=== PATIENT | male | born 1955 | race Caucasian/White ===

== ENCOUNTER → 2023-07-20 15:49 | Outpatient (REF) | payer OTHER, SELFPAY | LOC: HWRAD 15:49 | PROVIDERS: ATTENDING PHYSICIAN Family Medicine | DX: R26.89 Other abnormalities of gait and mobility (principal) | CPT/HCPCS: 70450 ==

== ENCOUNTER → 2023-07-21 07:39 | Outpatient (REF) | payer OTHER, SELFPAY | LOC: EMG 07:39 | PROVIDERS: ATTENDING PHYSICIAN Family Medicine | DX: R20.0 Anesthesia of skin (principal) | CPT/HCPCS: 95886; 95909 ==

== ENCOUNTER 2023-08-02 20:33 | Observation (INO) | payer OTHER, SELFPAY ==
[2023-08-02] VITALS (8 sets, daily range): BP systolic 98–171; BP diastolic 74–92; BMI 26.4
[2023-08-02 16:59] LABS: % Basophils 0.5 % (0-2); % Eosinophils 3.7 % (0-6); % Immature Granulocytes 0.3 % (0-0.5); % Lymphocytes 21.2 % (20.5-51.1); % Monocytes 8.3 % (1.7-9.3); Absolute Eosinophils 0.3 10^3/uL (0-0.7); Absolute Lymphocytes 1.7 10^3/uL (1.2-3.4); Absolute Monocytes 0.7 10^3/uL (0.1-0.6); Absolute Neutrophils 5.2 10^3/uL (1.4-6.5); Hematocrit 44.1 % (39.0-52.0); Hemoglobin 15.3 g/dL (13.0-18.0); Mean Corp Hgb Conc. 34.7 g/dL (33.0-37.0); Mean Corpuscular Hgb 30.3 pg (27.0-31.0); Mean Corpuscular Volume 87.3 fL (80.0-94.0); Mean Platelet Volume 11.4 fL (7.4-10.4); Nucleated Red Blood Cells % 0 % (-); Platelet Count 183 10^3/uL (130-400); Red Blood Cell Count 5.05 10^6/uL (4.70-6.10); White Blood Cell Count 7.9 10^3/uL (4.8-10.8)
[2023-08-02 17:17] LABS: ALT (SGPT) 49 U/L (0-50); AST (SGOT) 28 U/L (17-59); Albumin 4.5 g/dl (3.5-5.0); Alkaline Phosphatase 87 U/L (38-126); Blood Urea Nitrogen 28 mg/dl (9-20); Calcium 9.6 mg/dl (8.4-10.2); Carbon Dioxide 27 mmol/L (22-30); Chloride 105 mmol/L (98-107); Glucose 132 mg/dl (70-99); Potassium 3.8 mmol/L (3.5-5.1); Sodium 137 mmol/L (135-145); Total Bilirubin 0.4 mg/dl (0.2-1.3); Total Protein 7.1 g/dl (6.3-8.2); eGFR > 60.00
[2023-08-02 17:24] LABS: Troponin I < 0.012 ng/ml
--- NOTE | 2023-08-02 19:13 | ED.GENMED ---
History of Present Illness
General
Chief Complaint: Chest Pain
Source: patient
Exam Limitations: none
Time Seen by Provider: 08/02/23 18:01
Nursing documentation reviewed up to this point in time: agreed with
Travel History
Have you had any contact with someone who has COVID-19?: No
Do you have any symptoms of coronavirus? Fever > 100 degrees, chills, cough, shortness of breath, sore throat, loss of taste or smell, muscle aches, or headache?: No
History of Present Illness
History of Present Illness:
67-year-old male with past medical history of heart disease hypertension hyperlipidemia has had multiple stents and a failed stent last year follows with Dr. Terry presenting to the emergency department today with concerns of worsening chest pain
over the past few days described as midsternal with associated shortness of breath made worse with exertion initially improving with nitro but not improving earlier today.
Past History
Past History
ED Past Medical History: Asthma, CAD (Angina), HTN, Hypercholesterolemia, NIDDM (Just diagnosed but no medication as of Nov 2021) and Psychiatric (Anxiety)
ED Past Surgical History: Cardiac (Stent)
Social History
Tobacco: Non-smoker
Alcohol: None
Drug: None
Personal:
Living: with family
Employment: Employed
Family History
Family History: Hypertension
Review of Systems
Review of Systems
Allergies reviewed?: Yes
All Other Systems: ROS reviewed and negative except as documented in HPI and ROS
Phy Exam
Physical Exam
Physical Exam:
GENERAL: Alert , in no apparent distress
EYE: pupils equal and reactive
NECK: Supple, no significant adenopathy.
ENT: o/p clr, mmm.
CARDIAC: Regular rate and rhythm .
LUNGS: Clear breath sounds bilaterally, no acute respiratory distress, no wheezes/rales/rhonchi
ABDOMEN: Soft, without focal tenderness, no r/g, no cvat
NEUROLOGICAL: Alert and oriented, no focal neuro deficits
SKIN: Warm and dry, skin intact.
MUSCULOSKELETAL: No edema, well perfused.
PSYCH: Normal and appropriate interaction.
Scores
Heart Score for Chest Pain Patients
STEMI patient?: No
History: Moderately Suspicious
ECG: Normal
Age: >/= 65 years
Risk Factors: >/= 3 Risk Factors or History of CAD
Troponin: </= Normal Limit
Heart Score for Chest Pain Patients: 5
Heart Score Risk: 20.3% MACE over next 6 weeks
Course
Orders/Labs/Results
Orders:
Orders
08/02/23 16:40
Electrocardiogram (*1) Urgent
Reason for Study: Chest Pain
EKG- Treatment ONCE
08/02/23 16:54
Complete Blood Count/With Diff Urgent
Comprehensive Metabolic Panel Urgent
Troponin I Urgent
Abnormal Lab Results
08/02/23
16:54
MPV 11.4 H fL
(7.4-10.4)
Absolute Monos (auto) 0.7 H 10^3/uL
(0.1-0.6)
BUN 28 H mg/dl
(9-20)
Glucose 132 H mg/dl
(70-99)
08/02/23 16:54
08/02/23 16:54
Vital Signs
Initial and Last Documented VS:
Initial Vital Signs
Temp Pulse Resp BP Pulse Ox
98.5 F 65 20 146/81 100
08/02/23 16:46 08/02/23 16:46 08/02/23 16:46 08/02/23 16:46 08/02/23 16:46
Last Documented Vital Signs
Temp Pulse Resp BP Pulse Ox
98.5 F 63 18 98/79 98
08/02/23 16:46 08/02/23 19:00 08/02/23 19:00 08/02/23 19:00 08/02/23 19:00
MDM/Problems Addressed
MDM/Problems Addressed:
67-year-old male presenting to the emergency department today with concerns of chest discomfort progressively over the past few days was previously taking nitro with relief but with no significant relief today. Ongoing chest pressure made worse
with exertion associated shortness of breath. Concerning symptoms consistent with potential unstable angina plan to admit. Initial EKG and troponin negative. Stable throughout ER stay normal vital signs.
*Critical Care Note
Total Time (30-74mins, 75-104mins- exclusive of procedures): Not Applicable
ED Attending Note
-
Portions of this chart may have been created with voice recognition software.� Occasional wrong word or��sound alike� substitutions may have occurred due to the inherent limitations of voice recognition software.
Discharge Plan
Departure
Patient Disposition: Admit
Date of Disposition: 08/02/23
Time of Disposition: 19:18
Admit to: Telemetry
Admit to doctor: Joe
Presentation/result/management discussed w/ accepting MD/DO: Hospitalist
Patient with high blood pressure during this ER visit?: No
Condition: Good
Covid-19: Not Applicable
Discharge Problem:
Chest pain
Prescriptions:
No Action
losartan 100 MG tablet
100 mg PO DAILY
nitroglycerin 0.4 MG tablet, sublingual
0.4 mg sublingual [id number] PRN (Reason: chest pain)
hydrochlorothiazide 25 MG tablet
25 mg PO DAILY
ezetimibe 10 mg Tablet
10 mg PO DAILY
clopidogrel 75 mg tablet
75 mg PO DAILY
aspirin 81 MG tablet,delayed release (DR/EC)
81 mg PO DAILY
naproxen sodium [Aleve] 220 mg Tablet
440 mg PO DAILY PRN (Reason: mild pain)
fexofenadine [Cecy] 180 mg Tablet
180 mg PO DAILY
Referrals:
Dion Tran MD [Family Provider] -
Interventions
Interventions:
*Risk Screen - Suicide Last Done: 08/02/23 18:02
*General Assessment Last Done: 08/02/23 18:02
*Neglect/Abuse Screening Last Done: 08/02/23 18:02
*ED COVID-19 Vaccine History Last Done: 08/02/23 18:01
ED- Cardiac Assessment Last Done: 08/02/23 18:01
Discharge Date and Time
Print Language: PORTUGUESE
[2023-08-02] MEDS: LOW STRENGTH ASPIRIN 243 MG PO (19:44)
--- NOTE | 2023-08-02 19:46 | HPS.HSE ---
Family Physician
-
Family Physician: Dion Tran
Chief Complaint
-
Chest Pain/Dyspnea
History of Present Illness
67yo M with PMH CAD s/p Stents (last 04/2022 with in-stent restenosis) on asp/plavix, HTN/HLD, Asthma presents to ER with CP. Pt states he has had on and off chest pain 'discomfort/tightness' for months but worsening more significant over last few
weeks. +exertional component, also endorses SOB and extreme fatigue. Endorses mild radiation to left axilla. Also states pain is similar to 2015 and 2018 when her required stents. He has been taking several nitros in last few days with moderate
relief of symptoms, today took 3. Pt works in [employer] and states he has trouble carrying out simple activities within his job. Denies dizziness/LH, diaphoresis, nausea, abd pain. He underwent cath in 12/2022, at that time noted to have stable CAD,
with 60% LCx lesion, EF 57%. Medical management as was recommended with addition of atenolol which pt reports not being able to tolerate. Denies fever, chills, palps, wheezing, cough, abd pain, n/v/d/c, dysuria, calf or leg pain/swelling.
ER course: Pt presents wtih BP 132/74 -> 98/78, RR 18-21, other V.S.S. BUN/Cr 28/1.0, BG 132, Trop 0.012. EKG nonischemic. S/P ASA 243mg in ER.
Medical History
Past Medical History
Past Medical History: Reports Other
Additional Past Medical History:
ASCVD
CAD s/p Stents
Hypertension
Dyslipidemia
Asthma
Past Surgical History: Reports Other
Additional Past Surgical History:
PTCA with Stent (OM3 stented x 2, most recent 04/2022 for in-stent restenosis)
Social History
Tobacco: Non-smoker
Alcohol: None
Drug: None
Personal:
Living: With Family
Family History
Family History: CAD and Other (Father with CAD s/p OR age 67. Mother with CAD/HTN/Murmur. Daughter with heart murmur. )
Allergies / Home Medications
Allergies reflects when Allergies were last updated in [employer].
Home Medications with original date entered in [employer]
Allergy/Medication List:
Allergies
Allergy/AdvReac Type Severity Reaction Status Date / Time
amlodipine Allergy cough Verified 08/02/23 16:46
atorvastatin Allergy MUSCLE Verified 08/02/23 16:46
ACHES
lisinopril Allergy SLEEPINESS Verified 08/02/23 16:46
metoprolol Allergy sleepiness Verified 08/02/23 16:46
rosuvastatin [From Crestor] Allergy MYALGIAS Verified 08/02/23 16:46
Ouvotaz-JGW-BeX Reductase Allergy MUSCLE Verified 08/02/23 16:46
Inhibitor ACHES
[Navyywy-Riu-Tec Reductase
Inhibitor]
Home Medications
losartan 100 mg tablet 100 mg PO DAILY Blood pressure 08/29/17
hydrochlorothiazide 25 mg tablet 25 mg PO DAILY Blood pressure 05/26/18
nitroglycerin 0.4 mg sublingual tablet 0.4 mg sublingual [id number] PRN chest pain 05/26/18
ezetimibe 10 mg tablet 10 mg PO DAILY High cholesterol 11/17/21
aspirin 81 mg tablet,delayed release 81 mg PO DAILY Blood Clot Prevention/Tx 12/05/22
clopidogrel 75 mg tablet 75 mg PO DAILY Blood Clot Prevention/Tx 12/05/22
naproxen sodium 220 mg tablet (Aleve) 440 mg PO DAILY PRN mild pain 12/21/22
fexofenadine 180 mg tablet 180 mg PO DAILY 08/02/23
Review of Systems
-
A 12 point ROS was completed and negative except as noted: Yes
Physical Exam
Vital Signs
Vital Signs
Temp Pulse Resp BP Pulse Ox
98.5 F 63 18 98/79 98
08/02/23 16:46 08/02/23 19:00 08/02/23 19:00 08/02/23 19:00 08/02/23 19:00
Physical Exam
General: Well Developed, Well Nourished and No Apparent Distress
HEENT: NormoCephalic, Moist mucous membranes and Atraumatic
Respiratory: Clear
Cardiac: S1/S2, Regular Rhythm and Other (No reproducible chest wall tenderness. ); No Murmur or Rub
GI: Soft, Non Tender, Non Distended and Normal Bowel Sounds; No Organomegaly
Rectal: Deferred by Provider
Musculoskeletal: No Clubbing, No Cyanosis and No Edema
Skin: No Rash
Neuro: Awake, Alert, AO x 3 and Nonfocal/grossly intact
Psych: Calm
Laboratory Results
-
08/02/23 16:54
08/02/23 16:54
Laboratory Results
Total Bilirubin 0.4 mg/dl (0.2-1.3) 08/02/23 16:54
AST 28 U/L (17-59) 08/02/23 16:54
ALT 49 U/L (0-50) 08/02/23 16:54
Alkaline Phosphatase 87 U/L (38-126) 08/02/23 16:54
Troponin I < 0.012 ng/ml 08/02/23 16:54
Data Reviewed
-
Diagnostic Radiology: Image Personally Visualized and interpreted
Medical Tests (Nuc Med, Echo, EKG etc): Image Personally Visualized and interpreted
Lab Data: Labs Reviewed by me
Old Records: Reviewed
Impression/Plan
-
Chest Pain / Hx CAD s/p Stents / HLD
- Endorses exertional PEDRAZA/Chest pain/Fatigue worsening over past few weeks relieved by increasing frequency of nitro, today has taken 3
- EKG NSR @ 77bpm, No acute ischemic changes, QTC 436ms. Trop 0.012. Trend per ACS protocol
- obtain Lipids/A1C. Last LDL 76 11/2022
- S/P ASA 243mg in ER. Continue home bASA and plavix/statin/ARB
- Obtain CXR
- Case D/W Cardiology. NPO at midnight.
HTN - BP 132/74-> 98/79 on admission. Likely nitro effect. Continue home losartan. Hold HCTZ in light of suspected cath and slight elevation from baseline renal function.
Asthma - Denies any recent exacerbations. Does not take medications
Diet - Cardiac diet. NPO at midnight
DVT Ppx - Heparin [id number], low threshold to initiate heparin gtt
Code Status - DNR/DNI, Confirmed with pt and at bedside
[2023-08-03] VITALS (8 sets, daily range): BP systolic 144–157; BP diastolic 72–89
--- NOTE | 2023-08-03 00:09 | PTCARENOTE ---
Pt admitted to 2S. VSS. afebrile AAOx3. flat affect , easily agitated and uncooperative at times. C/o mild chest pain but refuses any med at the time. Pt refused a few of his meds and purple bracelet for DNR. Trop and EKG done. NSR in the tele
monitor. Lungs, GI and WNL. Pt ambulates within the room. NPO. Will cont with treatment plan.
--- NOTE | 2023-08-03 00:15 | PTCARENOTE ---
Pt doesn't have an IV access and refuses to have one unless it is necessary. Pt was informed of the need of having one and remains tele.
[2023-08-03 00:48] LABS: Troponin I < 0.012 ng/ml
[2023-08-03 03:25] LABS: % Basophils 0.5 % (0-2); % Eosinophils 3.9 % (0-6); % Immature Granulocytes 0.3 % (0-0.5); % Lymphocytes 20.9 % (20.5-51.1); % Monocytes 7.9 % (1.7-9.3); % Neutrophils 66.5 % (42.2-75.2); Absolute Eosinophils 0.3 10^3/uL (0-0.7); Absolute Lymphocytes 1.8 10^3/uL (1.2-3.4); Absolute Monocytes 0.7 10^3/uL (0.1-0.6); Absolute Neutrophils 5.8 10^3/uL (1.4-6.5); Hematocrit 42.5 % (39.0-52.0); Hemoglobin 14.8 g/dL (13.0-18.0); Mean Corp Hgb Conc. 34.8 g/dL (33.0-37.0); Mean Platelet Volume 11.5 fL (7.4-10.4); Nucleated Red Blood Cells % 0 % (-); Platelet Count 157 10^3/uL (130-400); Red Blood Cell Count 4.94 10^6/uL (4.70-6.10); White Blood Cell Count 8.7 10^3/uL (4.8-10.8)
--- NOTE | 2023-08-03 03:43 | VATNOTE ---
PT REFUSES TO HAVE IV ACCESS ESTABLISHED PER TELEMETRY PROTOCOL. EXPLAINED TO PT THE PURPOSE AND NEGATIVE EFFECTS OF NO IV ACCESS AND PT STATES A CLEAR UNDERSTANDING AND STILL REFUSES TO HAVE IV INSERTED. PCN AWARE.
[2023-08-03 03:45] LABS: Troponin I < 0.012 ng/ml
[2023-08-03 07:34] LABS: Blood Urea Nitrogen 24 mg/dl (9-20); Calcium 9.9 mg/dl (8.4-10.2); Carbon Dioxide 29 mmol/L (22-30); Chloride 103 mmol/L (98-107); Estimated Creatinine Clearance 90 ml/min; Glucose 115 mg/dl (70-99); HDL Cholesterol 34 mg/dl; LDL Cholesterol, Calculated 116 mg/dl; Potassium 4.4 mmol/L (3.5-5.1); Sodium 136 mmol/L (135-145); Total Cholesterol 183 mg/dl (50-199); Triglyceride 165 mg/dl (10-149); Very Low Density Lipoprotein 33 mg/dl (0-30); eGFR > 60.00
--- NOTE | 2023-08-03 08:32 | CON.CAR ---
Addendum entered and electronically signed by Primitivo Cabrales MD 08/03/23 10:44:
I saw and examined the patient.
The GAS COMPRESSOR TURBINE OPERATOR's note was reviewed and I agree with the note.
Comment: 67 y/o male with CAD s/p LAD and D1 stents 2014, stent to OM3 11/2021, another stent to edge stenosis at distal OM3 04/2022, hypertension, and dyslipidemia (statin intolerance). He is here since he has been having worsened chest discomfort
and PEDRAZA over the past 3 weeks.
Multiple medications adversions/allergies and difficult to treat. Discussed with him and he is adamant about cath.
- Cath either today/tomorrow
- NPO
Original Note:
Consultation
Consultation Request
Date/Time Consultation Requested: 08/02/232321
Date/Time Consultation Performed: 08/03/23 0830
Requesting Provider: Dr. Diaz
Performing Provider: Ginger MURRY for Dr. Cabrales
Reason for Consultation: chest discomfort
Medical History
-
Chief Complaint: chest discomfort
History of Present Illness:
67 y/o male with CAD s/p LAD and D1 stents 2014, stent to OM3 11/2021, another stent to edge stenosis at distal OM3 04/2022, hypertension, and dyslipidemia (statin intolerance). He is here since he has been having worsened chest discomfort and PEDRAZA
over the past 3 weeks. Then yesterday, he woke up with chest discomfort and it continued throughout the day and did seem to be worse with exertion though he didn't do much. He took nitro, which helped a little. He is here for evaluation. His
troponin levels are normal. He is in no distress at the time of my assessment. Notably, he is intolerant to multiple antianginal medications including metoprolol, amlodipine, Imdur, diltiazem, nitro patch, and Ranexa did not help. Per nursing,
refusing his subq heparin. Of note, he follows with Dr. Terry, but had a second opinion with [facility] Dr. Agosto, who recommended repeat cath as OP.
Past Medical History
Past Medical History: CAD, HTN and Hypercholesterolemia
Social History
Tobacco: Non-Smoker
Family History
Family History: CAD (dad)
Allergies / Home Medications
Allergy/AdvReac Type Severity Reaction Status Date / Time
amlodipine Allergy cough Verified 08/02/23 16:46
atorvastatin Allergy MUSCLE Verified 08/02/23 16:46
ACHES
lisinopril Allergy SLEEPINESS Verified 08/02/23 16:46
metoprolol Allergy sleepiness Verified 08/02/23 16:46
rosuvastatin [From Crestor] Allergy MYALGIAS Verified 08/02/23 16:46
Lwvmyvd-PAA-RaY Reductase Allergy MUSCLE Verified 08/02/23 16:46
Inhibitor ACHES
[Stqdrnp-Kkk-Ums Reductase
Inhibitor]
�Medication �Instructions �Recorded �Confirmed �Type
losartan 100 mg tablet 100 mg PO DAILY Blood pressure 08/29/17 08/02/23 History
hydrochlorothiazide 25 mg tablet 25 mg PO DAILY Blood pressure 05/26/18 08/02/23 History
nitroglycerin 0.4 mg sublingual 0.4 mg sublingual [id number] PRN 05/26/18 08/02/23 History
tablet chest pain
ezetimibe 10 mg tablet 10 mg PO DAILY High cholesterol 11/17/21 08/02/23 History
aspirin 81 mg tablet,delayed 81 mg PO DAILY Blood Clot 12/05/22 08/02/23 History
release Prevention/Tx
clopidogrel 75 mg tablet 75 mg PO DAILY Blood Clot 12/05/22 08/02/23 History
Prevention/Tx
naproxen sodium 220 mg tablet 440 mg PO DAILY PRN mild pain 12/21/22 08/02/23 History
(Aleve)
fexofenadine 180 mg tablet 180 mg PO DAILY Allergies 08/02/23 08/02/23 History
Review of Systems
-
History Source: Patient
All other systems: Negative unless noted
Respiratory: Trouble Breathing
Cardiac: Chest Pain
Physical Exam
Vital Signs
Temp Pulse Resp BP Pulse Ox
97.5 F 70 17 157/77 95
08/03/23 07:35 08/03/23 07:35 08/03/23 07:35 08/03/23 07:35 08/03/23 07:35
Lab Results
08/03/23 03:15
08/03/23 05:54
Troponin I < 0.012 ng/ml 08/03/23 03:15
Physical Exam
General: Well Developed, Well Nourished and No Apparent Distress
HEENT: Normocephalic and Anicteric
Respiratory: Clear and Non Labored Respirations
Cardiac: Regular Rhythm
Breast: Deferred by me
GI: Soft, Non Distended and Normal Bowel Sounds
Musculoskeletal: No Edema
Skin: Warm and Dry
Neuro: AO x 3
Psych: Calm
Impression / Plan
-
Chest discomfort, concern for unstable angina:
-on ASA, Plavix
-trops and EKG's okay
-known significant CAD with most recent cath as below
-will discuss case with highway painter helper, will likely need repeat cath- timing to be determined
CAD with hx stenting:
-continue ASA, Plavix
-multiple medicine intolerances as noted
Dyslipidemia:
-LDL 116, but intolerant to statin
-PCSK9 inhibitors have been discussed with patient, but he declined for Dr. Terry per notes
-continue zetia
HTN:
-on HCTZ, losartan
-monitor
Data Reviewed
-
EKG: Tracing Personally Visualized and interpreted
Radiology: Report Reviewed by me (CXR: No acute cardiopulmonary process.)
Medical Tests (Nuc Med, Echo etc): Report Reviewed by me (cath 12/21/22: Systemic hypertension 2: Normal left ventricular wall motion with EF 57% 3. Stable CAD)
Labs: Labs Reviewed by me
[2023-08-03] MEDS: COZAAR 100 MG PO (08:55)
[2023-08-03] MEDS: ASPIR LOW (ENTERIC COATED) 81 MG PO (08:55)
[2023-08-03] MEDS: PLAVIX 75 MG PO (08:55)
[2023-08-03] MEDS: ZETIA 10 MG PO (08:55)
[2023-08-03 09:09] LABS: Glycohemoglobin (HgbA1c) 6.5 % (4.0-5.6)
--- NOTE | 2023-08-03 11:07 | PTCARENOTE ---
Patient refused heparin sq this AM as ordered even after being educated on the reason for the medication and the risks of not taking it. Dr. Arzate made aware.
--- NOTE | 2023-08-03 13:32 | W.PN.HOSP.TC ---
Addendum entered and electronically signed by Jaguar Arzate MD 08/05/23 17:48:
[id number]
Addendum entered and electronically signed by Jaguar Arzate MD 08/03/23 15:53:
Cardiac cath completed, no interventions performed�suspect microvascular angina versus silent GERD with esophageal spasm
� Secondary preventive medications that patient will tolerate from
� Follow-up check with cardiology outpatient
� Trial PPI
Should follow-up with GI, cardiology, PCP outpatient
Avoid NSAIDs
dc today
Original Note:
Today's Communication/Plan
-
LHC
ASA, Plavix
Assessment / Plan
Assessment / Plan
Physical Exam
General: Well Developed, Well Nourished and No Apparent Distress
HEENT: Normocephalic and Anicteric
Respiratory: Clear and Non Labored Respirations
Cardiac: Regular Rhythm
Breast: Deferred by me
GI: Soft, Non Distended and Normal Bowel Sounds
Musculoskeletal: No Edema
Skin: Warm and Dry
Neuro: AO x 3
Psych: Calm
#Chest Discomfort
#CAD s/p PCI
#HLD
- Endorses exertional PEDRAZA/Chest pain/Fatigue worsening over past few weeks relieved by increasing frequency of nitro, today has taken 3
- -ASA, Plavix
-Repeat Cath today v tomorrow
-Intolerant to statin
-PCSK9 inhibitors have been discussed with patient, but he declined for Dr. Terry per notes
-continue zetia
HTN -
- Continue home losartan.
-Hold HCTZ in light of suspected cath
Asthma - Denies any recent exacerbations. Does not take medications
DVT Ppx - Heparin [id number]
Code Status - DNR/DNI,
Anticipated Discharge: Within 24 hours
Subjective/Interval History
-
Date of Service: August 03, 2023
No acute events, still complaining of slight chest discomfort
Objective Data
-
Labs:
Laboratory Results
08/03/23 08/03/23
03:15 05:54
WBC 8.7
Hgb 14.8
Hct 42.5
Plt Count 157
Sodium Cancelled 136
Potassium Cancelled 4.4
Chloride Cancelled 103
Carbon Dioxide Cancelled 29
BUN Cancelled 24 H
Creatinine Cancelled 0.9
Glucose Cancelled 115 H
Calcium Cancelled 9.9
Vital Signs:
Vital Signs
Temp Pulse Resp BP Pulse Ox
97.7 F 66 17 157/80 99
08/03/23 11:15 08/03/23 11:15 08/03/23 11:15 08/03/23 11:15 08/03/23 11:15
Review of Systems
-
History Source: Patient
All other systems: Not reviewed unless documented
Data Reviewed
-
Diagnostic Radiology: Image personally visualized and interpreted and Report Reviewed by me
Medical Tests (Nuc Med, Echo etc): Image personally visualized and interpreted and Report Reviewed by me
Labs: Labs Reviewed by me
--- NOTE | 2023-08-03 14:22 | ITS.CL.CATH ---
Medical Technologist H[facility]ology - Catheterization
Cardiac Catheterization
Procedure Report:
CARDIAC CATHETERIZATION REPORT
Date of Procedure: 08/03/2023
Referring: Primitivo Cabrales M.D.
INDICATION: Known coronary artery disease, recurrent chest pain.
PROCEDURE:
1. Left heart catheterization.
2. Coronary angiography.
ACCESS:
6 [place] right radial artery.
CATHETERS:
1. 5 [place] JR4.
2. 5 [place] JL 3.5.
HEMODYNAMIC DATA
Weight (kg): 88.0
AO (s/d/x, mmHg): 136/80/104
LV (s/x mmHg): 136/5
LEFT VENTRICULOGRAPHY: Not performed.
CORONARY ANGIOGRAPHY
Dominance: Right.
Left Main: Normal size, bifurcating vessel. There is no coronary artery disease.
LAD: Normal size vessel giving rise to 1 significant diagonal which subsequently bifurcates into 2 separate branches. Patent stents are visible in the proximal/mid LAD as well as in the origin of the diagonal. There is no evidence of in-stent
restenosis.
Ramus: Congenitally absent.
Circumflex: Large size, nondominant vessel giving rise to 3 obtuse marginals. OM1 and OM 2 are small, sub-1 mm vessels. OM 3 is a large vessel supplying the entire inferolateral wall. There is a 50-60% lesion in the proximal circumflex,
proximal to the origin of OM 3. There is a patent stent in the body of OM 3 that is widely patent. The daughter branches of OM 3 are severely tortuous.
RCA: Large size, dominant vessel with a substantial posterolateral arcade. There is a 20% lesion in the mid vessel. There is a 30% lesion at the origin of the RPDA.
INTERVENTION(S)
None.
Closure Device: Vascular band.
Radiation (mGy): 318.74
DAP (cm2.Gy): 28.1914
Fluoroscopy time (minutes): 2.7
Sedation time (minutes): 0
CONCLUSIONS
1. Right dominant circulation with a 20% mid RCA lesion, a 30% lesion at the origin of the RPDA, patent stents in the proximal/mid LAD and the origin of the large first diagonal, a widely patent stent in the body of OM 3 and is stable/improved
50-60% proximal circumflex lesion. On review of the prior films from December 2022, the circumflex lesion, which was nonocclusive by IFR at the time, actually appears slightly improved angiographically.
2. Normal filling pressures (LVEDP = 5 mmHg at 88.0 kg).
3. I suspect the patient is suffering from either microvascular angina versus silent GERD with esophageal spasm.
RECOMMENDATIONS:
1. Expectant management after cardiac catheterization via right radial approach.
2. Limited weight bearing on the right wrist for one week.
3. Secondary preventive medications as the patient will tolerate.
4. Consider a trial of PPI or H2 ebony for empiric treatment of reflux and spasm.
Copy to: Izzy Lynn M.D., Primitivo Cabrales M.D., Aaron Terry M.D., Ph.D., Dion Tran M.D.
Bernardo Ballard DO, FACC, FACP
--- NOTE | 2023-08-03 17:02 | PTCARENOTE ---
Received patient from label tacker around 1415 in stable condition. Radial band in place at that time. Removed per protocol at 1634. Patient had right ac 20 placed in the manager labor delivery. Removed at 1515 per patients request. Patient also refused post NSS
protocol and HCTZ. Selena Casper NP made aware. Dr. Arzate made aware. Patient discharged around 1700. Refused wheel chair. Walked out with .
== END 2023-08-03 17:55 | disposition home or self-care (01) ==
LOC: 2 SOUTH 20:33
PROVIDERS: ADMITTING PHYSICIAN Internal Medicine; ATTENDING PHYSICIAN Internal Medicine; EMERGENCY PHYSICIAN Emergency Medicine; FAMILY PHYSICIAN Family Medicine; OTHER PHYSICIAN Internal Medicine Cardiovascular Disease
DX: R07.89 Other chest pain (principal); K21.9 Gastro-esophageal reflux disease without esophagitis; K22.4 Dyskinesia of esophagus; I10 Essential (primary) hypertension; E78.00 Pure hypercholesterolemia, unspecified; J45.909 Unspecified asthma, uncomplicated; I25.118 Atherosclerotic heart disease of native coronary artery with other forms of angina pectoris; E11.9 Type 2 diabetes mellitus without complications; R53.83 Other fatigue; R06.09 Other forms of dyspnea; F41.9 Anxiety disorder, unspecified; Z79.82 Long term (current) use of aspirin; Z79.02 Long term (current) use of antithrombotics/antiplatelets; Z95.5 Presence of coronary angioplasty implant and graft; Z88.8 Allergy status to other drugs, medicaments and biological substances; Z66 Do not resuscitate; Z82.49 Family history of ischemic heart disease and other diseases of the circulatory system
CPT/HCPCS: 71045; 80048; 80053; 80061; 83036; 84484; 85025; 93005; 93306; 93458; 99285; C1894; G0378; Q9967

== ENCOUNTER 2024-09-03 13:42 | Emergency (ER) | payer OTHER, SELFPAY ==
[2024-09-03 13:48] VITALS: BP 153/87
[2024-09-03 14:10] VITALS: BMI 28.4
[2024-09-03 14:13] VITALS: BP 158/77
[2024-09-03 14:34] LABS: % Basophils 0.5 % (0-2); % Eosinophils 3.6 % (0-6); % Immature Granulocytes 0.3 % (0-0.5); % Lymphocytes 19.6 % (20.5-51.1); % Monocytes 8.8 % (1.7-9.3); % Neutrophils 67.2 % (42.2-75.2); Absolute Eosinophils 0.3 10^3/uL (0-0.7); Absolute Lymphocytes 1.5 10^3/uL (1.2-3.4); Absolute Monocytes 0.7 10^3/uL (0.1-0.6); Absolute Neutrophils 5.3 10^3/uL (1.4-6.5); Hematocrit 45.3 % (39.0-52.0); Hemoglobin 15.7 g/dL (13.0-18.0); Mean Corp Hgb Conc. 34.7 g/dL (33.0-37.0); Mean Corpuscular Hgb 30.5 pg (27.0-31.0); Mean Corpuscular Volume 88.1 fL (80.0-94.0); Mean Platelet Volume 11.7 fL (7.4-10.4); Nucleated Red Blood Cells % 0 % (-); Platelet Count 164 10^3/uL (130-400); Red Blood Cell Count 5.14 10^6/uL (4.70-6.10); White Blood Cell Count 7.8 10^3/uL (4.8-10.8)
--- NOTE | 2024-09-03 14:41 | ED.GENMED ---
History of Present Illness
General
Chief Complaint: Chest Pain
Source: patient
Exam Limitations: none
Time Seen by Provider: 09/03/24 14:26
Nursing documentation reviewed up to this point in time: agreed with
History of Present Illness
History of Present Illness:
Patient is a 68-year-old male presents to the ER for evaluation. Patient has a history of stable angina and is followed by Dr. Terry. He has had increasing chest pain over the past several months and because of this is scheduled for catheterization
next Tuesday. He has [address] He is on aspirin Plavix and other medication. He normally reports that nitroglycerin helps his discomfort however today he woke up with some chest pressure and despite taking 3 nitroglycerin he could not
get it to fully resolve. This pressure was noticed upon awakening and was not associate with exertion. He has no shortness of breath or nausea with it.
Past History
Past History
ED Past Medical History: Asthma, CAD (Angina), HTN, Hypercholesterolemia, NIDDM (Just diagnosed but no medication as of Nov 2021) and Psychiatric (Anxiety)
ED Past Surgical History: Cardiac (Stent)
Social History
Tobacco: Non-smoker
Alcohol: None
Drug: None
Personal:
Living: with family
Employment: Employed
Family History
Family History: Hypertension
Review of Systems
Review of Systems
Allergies reviewed?: Yes
All Other Systems: ROS reviewed and negative except as documented in HPI and ROS
Constitutional: Reports no symptoms; Denies fever, fatigue or chills
Respiratory: Reports no symptoms; Denies trouble breathing
Cardiac: Reports chest pain; Denies diaphoresis, palpitations or syncope
ABD/GI: Reports no symptoms
: Reports no symptoms
Musculoskeletal: Reports no symptoms
Skin: Reports no symptoms
Neurological: Reports no symptoms
Psychiatric: Reports no symptoms
Phy Exam
General Physical Exam
General Presentation: well appearing
General age: appears stated age
General Skin: warm and dry
General Habitus: normal
General Mental: alert
General Hydration: appears well hydrated
Cardiovascular Exam
Cardiovascular Exam: regular rate/rhythm, no murmur and normal peripheral pulses
Pulmonary Exam
Pulmonary Exam: lungs clear and no respiratory distress
Neurological Exam
Neurological Exam: alert and oriented x3
Musculoskeletal Exam
Musculoskeletal Exam: full ROM
Skin Exam
Skin Exam: normal color and warm/dry
Psychiatric Exam
Psychiatric Exam: normal mood/affect
Scores
Heart Score for Chest Pain Patients
STEMI patient?: Not applicable
Course
Orders/Labs/Results
Orders:
Orders
09/03/24 13:44
EKG [Electrocardiogram (*1)] Urgent
Reason for Study: Chest Pain
EKG- Treatment ONCE
09/03/24 14:22
CMP [Comprehensive Metabolic Panel] Urgent
Complete Blood Count/With Diff Urgent
PT/INR [Prothrombin Time] Urgent
PTT Urgent
Troponin I Urgent
09/03/24 16:13
EKG- Treatment ONCE
09/03/24 17:02
Troponin I Urgent
09/03/24 17:20
Electrocardiogram (*1) Stat
Reason for Study: Other
Other Reason for Exam: chest pain
09/03/24 18:44
Chest [CR Chest - 2 Views ] Urgent
Comment:
Reason For Exam: cp
Abnormal Lab Results
09/03/24
14:22
MPV 11.7 H fL
(7.4-10.4)
Absolute Monos (auto) 0.7 H 10^3/uL
(0.1-0.6)
Lymphocytes % 19.6 L %
(20.5-51.1)
Chloride 109 H mmol/L
(98-107)
BUN 22 H mg/dl
(9-20)
Glucose 131 H mg/dl
(70-99)
09/03/24 14:22
09/03/24 14:22
Vital Signs
Initial and Last Documented VS:
Initial Vital Signs
Temp Pulse Resp BP Pulse Ox
98 F 90 16 153/87 98
09/03/24 13:48 09/03/24 13:48 09/03/24 13:48 09/03/24 13:48 09/03/24 13:48
Last Documented Vital Signs
Temp Pulse Resp BP Pulse Ox
98 F 65 16 153/80 98
09/03/24 13:48 09/03/24 18:45 09/03/24 18:45 09/03/24 18:00 09/03/24 18:45
MDM/Problems Addressed
MDM/Problems Addressed:
As documented patient is a 68-year-old male with history of CAD stents on Plavix and aspirin presents for evaluation of chest discomfort that he woke up with this morning. He is scheduled for catheterization September 14. Today he had chest discomfort
at rest with did not improve with nitroglycerin which is why he presented here to the ER. On arrival patient was feeling better pain had almost resolved and he is in no acute distress he had no associated shortness of breath. No acute findings on
EKG and 2 cardiac troponins are negative. No acute findings on EKG nonspecific ST segment changes heart rate in the 80s.
Case discussed with cardiology with 2 negative cardiac enzymes patient well-appearing stable for discharge home. Dr. roe did suggest that we can start patient on Imdur however I spoke with patient and he has not tolerated Imdur in the past. He
will be discharged home with outpatient follow-up for cath as scheduled with instructions to return if any worsening of symptoms. Chest x-ray results reviewed with patient and discussed outpatient CAT scan needed for further evaluation of
nodularities found
*Radiology
Radiology exam reviewed: radiology read reviewed
*Pulse Oximetry
Patient hypoxic: no
*EKG
Interpreted by ED Provider?: Yes
Heart Rate: 90
Rate: normal
Rhythm: sinus
*Critical Care Note
Total Time (30-74mins, 75-104mins- exclusive of procedures): Not Applicable
Data Reviewed
Review of Other/Old Records Reveals: Discharge Summary and Other (cath report from 2023 )
Patient Management
Discussion with other providers: Chip Bin Operator (DR Roe )
ED Attending Note
-
Portions of this chart may have been created with voice recognition software.� Occasional wrong word or��sound alike� substitutions may have occurred due to the inherent limitations of voice recognition software.
Discharge Plan
Departure
Patient Disposition: Home (Routine Discharge)
Date of Disposition: 09/03/24
Time of Disposition: 19:26
Patient with high blood pressure during this ER visit?: Yes
Condition: Fair
Covid-19: Not Applicable
Discharge Problem:
Chest pain
Instructions: Chest Pain CBC Follow Up
Prescriptions:
No Action
losartan 100 MG tablet
100 mg PO DAILY
nitroglycerin 0.4 MG tablet, sublingual
0.4 mg sublingual [id number] PRN (Reason: chest pain)
hydrochlorothiazide 25 MG tablet
25 mg PO DAILY
ezetimibe 10 mg Tablet
10 mg PO DAILY
clopidogrel 75 mg tablet
75 mg PO DAILY
aspirin 81 MG tablet,delayed release (DR/EC)
81 mg PO DAILY
fexofenadine 180 mg Tablet
180 mg PO DAILY
pantoprazole 40 mg tablet,delayed release (DR/EC)
40 mg PO DAILY Qty: 30 0RF
Referrals:
Aaron Terry MD [Active] -
Bernardo Tran MD [Family Provider] -
Activity Restrictions/Additional Instructions:
As discussed please follow-up with cardiology as scheduled please give them a call tomorrow to let them know that you were seen here in the ER for chest pain and you are scheduled for cardiac catheterization next Tuesday. Continue to take your
previously prescribed medications. Avoid exertional activities and till seen by cardiology.
Also as discussed there are no acute findings on your x-ray however there was an 8 mm nodularity for which a CAT scan is recommended. Please follow-up with your family doctor for reevaluation and further evaluation and testing.
Return if any worsening of symptoms
Interventions
Interventions:
*Risk Screen - Suicide Last Done: 09/03/24 13:48
*General Assessment Last Done: 09/03/24 14:10
*Neglect/Abuse Screening Last Done: 09/03/24 13:48
*ED- Fall Risk Assessment Last Done: 09/03/24 14:10
*ED COVID-19 Vaccine History Last Done: 09/03/24 14:10
*Nursing Disposition Last Done: 09/03/24 19:31
ED- Cardiac Assessment Last Done: 09/03/24 14:10
Discharge Date and Time
Discharge Date/Time: 09/03/24 19:33
Print Language: MALAY
[2024-09-03 14:43] LABS: INR 1.02; PT 13.7 Sec (11.4-14.6)
[2024-09-03 15:00] VITALS: BP 134/68
[2024-09-03 15:09] LABS: Troponin I < 0.012 ng/ml
[2024-09-03 15:12] LABS: ALT (SGPT) 41 U/L (0-50); AST (SGOT) 25 U/L (17-59); Albumin 4.6 g/dl (3.5-5.0); Alkaline Phosphatase 82 U/L (38-126); Blood Urea Nitrogen 22 mg/dl (9-20); Carbon Dioxide 26 mmol/L (22-30); Chloride 109 mmol/L (98-107); Estimated Creatinine Clearance 89 ml/min; Glucose 131 mg/dl (70-99); Potassium 3.7 mmol/L (3.5-5.1); Sodium 143 mmol/L (135-145); Total Bilirubin 0.4 mg/dl (0.2-1.3); Total Protein 7.1 g/dl (6.3-8.2); eGFR > 60.00
[2024-09-03 16:00] VITALS: BP 133/72
[2024-09-03 17:00] VITALS: BP 152/82
[2024-09-03 17:36] LABS: Troponin I < 0.012 ng/ml
[2024-09-03 18:00] VITALS: BP 153/80
== END 2024-09-03 19:33 | disposition home or self-care (01) ==
LOC: EMR 13:42
PROVIDERS: Nurse Practitioner; EMERGENCY PHYSICIAN Student in an Organized Health Care Education/Training Program; FAMILY PHYSICIAN Family Medicine; OTHER PHYSICIAN Internal Medicine
DX: R07.89 Other chest pain (principal); R06.02 Shortness of breath; R53.83 Other fatigue; I20.89 Other forms of angina pectoris; I25.10 Atherosclerotic heart disease of native coronary artery without angina pectoris; I10 Essential (primary) hypertension; E78.00 Pure hypercholesterolemia, unspecified; J45.909 Unspecified asthma, uncomplicated; E11.9 Type 2 diabetes mellitus without complications; F41.9 Anxiety disorder, unspecified; M19.90 Unspecified osteoarthritis, unspecified site; Z95.5 Presence of coronary angioplasty implant and graft; Z79.82 Long term (current) use of aspirin; Z79.02 Long term (current) use of antithrombotics/antiplatelets; Z88.8 Allergy status to other drugs, medicaments and biological substances
CPT/HCPCS: 99285; 71046; 80053; 84484; 85025; 85610; 85730; 93005

== ENCOUNTER 2024-09-05 08:17 | Day surgery (SDC) | payer OTHER, SELFPAY ==
[2024-09-05] VITALS (17 sets, daily range): BP systolic 134–173; BP diastolic 64–101; BMI 28.9
[2024-09-05 11:52] LABS: ACT-LR - POC 303 Seconds (116-155)
[2024-09-05] MEDS: NSS 1000 IV (13:00)
[2024-09-05 15:16] LABS: ACT-LR - POC > 397 Seconds (116-155)
--- NOTE | 2024-09-05 16:01 | DOWNTIME ---
There was a [employer] Downtime on 09/05/2024 from 1230 to 09/05/2024 at 1550. Downtime documentation of patient's care, including medication administrations, has been reconciled in the electronic record per guidelines. Refer to the
patient's paper chart under the miscellaneous tab to see printed paper medication records and downtime forms.
--- NOTE | 2024-09-05 16:13 | PTCARENOTE ---
Received patient from the wood and wood products labourer at 1300. Radial band was in place on the right wrist, initially upon receipt from the wood and wood products labourer he was noted to have some oozing beneath the band and the wood and wood products labourer nurse Robert placed an additional 2ml of air into the
band. VS were monitored as per protocol, with post angio checks done as per protocol. Patient complained of 3/10 midsternal chest burning which was slightly increased since what he experienced during and after the procedure. Patient seen by Ronny Gonzalez
PUBLIC AFFAIRS SPECIALIST, no progression of the pain and no further orders at this time. Patient appears comfortable, up to the bathroom x 2 to urinate. Patient ate lunch, resting in bed, call vergara in reach.
--- NOTE | 2024-09-05 16:39 | ITS.CL.ANGIO ---
[employer] - Angioplasty
Angioplasty
Procedure Report:
CARDIAC CATHETERIZATION REPORT
Date of Procedure: 09/05/2024
Referring: Aaron Terry M.D., PhD
INDICATION: Refractory angina, intolerant of multiple antianginal medications.
PROCEDURE:
1. Left heart catheterization.
2. Coronary angiography.
3. Successful IVUS guided PCI of the ostial/proximal circumflex.
4. Successful simultaneous kissing balloon angioplasty of the LAD/circumflex.
A total of 0 minutes of procedural/moderate sedation was utilized. An independent medical record retrieval specialist was present to assist with and help manage the patient's level of consciousness and physiologic status.
ACCESS:
1. 6 Scottish right radial artery using a modified Seldinger technique.
CATHETERS:
1. 5 Scottish JR4.
2. 5 Scottish JL 3.5.
3. 6 Scottish EBU 3.5 guiding catheter.
HEMODYNAMIC DATA
Weight (kg): 93.9
AO (s/d/x, mmHg): 135/79/102
LV (s/x mmHg): 138/12
LEFT VENTRICULOGRAPHY: Not performed.
CORONARY ANGIOGRAPHY
Dominance: Right.
Left Main: Normal size, bifurcating vessel. There is no coronary artery disease.
LAD: Normal size vessel giving rise to 1 significant diagonal. Patent stents are visible in the proximal/mid LAD as well as in the origin of the diagonal. There is no evidence of in-stent restenosis.
Ramus: Congenitally absent.
Circumflex: Large size, nondominant vessel giving rise to 3 obtuse marginals. OM1 and OM 2 are small, sub-1 mm vessels. OM 3 is a large vessel supplying the entire inferolateral wall. There is a 75% lesion in the ostial/proximal circumflex
leading into OM 3, progressed from prior study. A patent stent is visible in the body of OM 3 with no evidence of in-stent restenosis.
RCA: Large size, dominant vessel with a notable posterolateral arcade. There is 30% lesion at the bifurcation of the distal RCA and the RPDA.
INTERVENTION(S)
1. Successful IVUS guided PCI of the 75% ostial/proximal circumflex lesion (Medtronic Aric Holden 3.5 x 22 CESAR, postdilated with a 3.5 NC balloon throughout and a 3.75 NC balloon in the proximal margin) with reduction in stenosis to 0%,
maintaining CHAY-3 flow, but complicated by proximal migration of the stent into the left main coronary artery as the stent was deployed.
2. Successful percutaneous transluminal angioplasty of the ostial LAD through the left main/left circumflex stent struts (Medtronic Euphora 2.0 x 12 semicompliant balloon).
3. Successful IVUS guided bifurcation PTCA with simultaneous kissing balloons in the left main/circumflex (Medtronic Euphora NC 3.75 x 12) and the left main/LAD (Medtronic Euphora 3.5 x 15) with successful creation of a neocarina and adequate stent
strut dilation to avoid jailing of the LAD.
Narrative:
The decision was made to perform intracoronary imaging. The diagnostic catheter was removed over a wire and exchanged for 6 Scottish EBU 3.5 guiding catheter. The guiding catheter was advanced into the ascending aorta and seated in the left main
coronary artery. Additional heparin was given to obtain an ACT greater than 250 seconds. After crossing the left circumflex lesion with a coronary wire, an IVUS catheter was advanced through the guiding catheter and into the ostium of the artery.
Ring down was performed once the imaging crystal was no longer inside of the guiding catheter. The IVUS catheter was advanced into the third obtuse marginal. Intravascular ultrasound was performed in a retrograde fashion using a slow pullback.
Intracoronary imaging demonstrated severe atherosclerotic disease in the proximal/ostium of the left circumflex without significant disease in the left main coronary artery. Vessel sizing was performed.
A BMW wire was advanced into the distal LAD for protection. The 75% ostial/proximal circumflex lesion was predilated with a 3.0 x 15 semi-compliant balloon to 12 delta. The semi-compliant balloon was removed and a Medtronic Norman Holden 3.5 x 22
drug-eluting stent was advanced. Meticulous care was taken while positioning the stent, ensuring that the entire lesion was covered and that the proximal edge of the stent would land in the true ostium of the vessel. The stent was deployed at 12
atmospheres but migrated proximally as the stent expanded into the left main coronary artery. The stent balloon was removed. A 3.5 x 15 noncompliant balloon was advanced into the stent and the stent was postdilated to 15 atmospheres.
The noncompliant balloon was withdrawn and the IVUS catheter was readvanced but would not advance into the stented segment. The IVUS catheter was withdrawn. The BMW wire was withdrawn and a 6 Scottish GuideLiner was advanced over the power turn Flex
wire and into the circumflex over the 3.0 x 15 semicompliant balloon. The semicompliant balloon was withdrawn and the IVUS catheter was readvanced through the guide liner. The GuideLiner was pulled back to the catheter and IVUS was performed in
retrograde fashion. This demonstrated good stent apposition throughout the entire vessel with minor underexpansion in the proximal/ostial segment. There was minor mall apposition of the stent in the left main due to size discrepancy. The decision
was made to perform POT before addressing the jailed LAD. The IVUS catheter was withdrawn and a 3.75 x 12 noncompliant balloon was advanced. The proximal and ostial portions of the stent were postdilated to 14 delta in the most distal aspect, 16 delta
in the mid aspect and 18 delta in the overlap from left main into circumflex.
The noncompliant balloon was withdrawn. A whisper wire was advanced into the left main coronary artery and through the stent struts into the distal LAD. A 2.0 x 12 semicompliant balloon was advanced over the whisper wire and through the stent
struts. The stent struts were dilated to 12 delta. The semicompliant balloon was withdrawn and IVUS was advanced into the LAD. IVUS was performed in retrograde fashion into the left main. This confirmed that the wire was through the stent struts
and there was adequate dilation of the stent struts to allow for passage of more interventional equipment. Vessel sizing was performed.
The IVUS catheter was withdrawn. The decision was made to perform simultaneous kissing balloons to allow for maximal expansion of the circumflex stent while opening the stent struts and on jailing the left anterior descending artery. The 3.75 x 12
noncompliant balloon was advanced over the power turn flex wire and into the circumflex. The 3.5 x 15 noncompliant balloon was advanced over the whisper wire and into the LAD. The 3.5 noncompliant balloon was positioned in the left main coronary
artery and LAD, spanning the stent struts of the circumflex stent. The 3.5 x 15 noncompliant balloon was expanded to 14 delta. The balloon was deflated. The 3.75 x 12 noncompliant balloon was pulled back into the left main coronary artery/ostial
left circumflex artery. The 3.75 NC balloon was dilated to 15 delta. The balloon was deflated. Both balloons were inflated simultaneously and a kissing balloon fashion to 15 delta. Both balloons were withdrawn.
IVUS was performed in both vessels, demonstrating excellent stent expansion in the circumflex and left main with no evidence of jailing of the ostial LAD. The IVUS catheter was withdrawn.
Angiography was performed in orthogonal views, confirming good stent expansion and an excellent angiographic result. The coronary wire was withdrawn and the guide was disengaged from the artery. The catheter was removed over a standard J-wire.
Closure Device: Vascular band.
Radiation (mGy): 1536.78
DAP (cm2.Gy): 108.07
Fluoroscopy time (minutes): 27.2
CONCLUSIONS
1. Successful IVUS guided PCI of the 75% ostial/proximal circumflex lesion (Medtronic Norman Holden 3.5 x 22 CESAR, postdilated with a 3.5 NC balloon throughout and a 3.75 NC balloon in the proximal margin) with reduction in stenosis to 0%,
maintaining CHAY-3 flow, but complicated by proximal migration of the stent into the left main coronary artery as the stent was deployed, requiring PTCA from the left main into the LAD through the stent struts followed by IVUS guided bifurcation
PTCA with simultaneous kissing balloons in the left main/circumflex (Medtronic Euphora NC 3.75 x 12) and the left main/LAD (Medtronic Euphora 3.5 x 15) with successful creation of a neocarina and adequate stent strut dilation to avoid jailing of the
LAD.
2. Normal filling pressures (LVEDP = 12 mmHg at 93.9 kg).
RECOMMENDATIONS:
1. Expectant management after cardiac catheterization via right radial approach.
2. Limited weight bearing on the right for one week.
3. Dual antiplatelet therapy with aspirin and clopidogrel for at least 12 months, possibly added for an item given the presence of stent struts in the left main.
4. OMT/GDMT as hemodynamics will tolerate. The patient has been previously intolerant of multiple antianginal medications including Nitropatch, beta-ebony, long-acting nitrates, calcium channel blockers and ranolazine.
5. Aggressive secondary prevention with alirocumab. Goal LDL <55.
6. Monitor overnight given complexity of procedure.
7. Referral to cardiac rehab.
Copy to: Aaron Terry M.D., Ph.D., JEANMARIE Pike, Dion Tran M.D.
Bernardo Ballard, , FACC, FACP
--- NOTE | 2024-09-05 18:35 | PTCARENOTE ---
Right wrist dressing is dry and intact with a strong radial pulse. Patient has been oob to the bathroom, ate dinner, VSS. Still has 3/10 midsternal chest burning. Patient seen by Dr. Ballard, stated he explained intervention with him and the patient
did discuss the post cath discomfort he was having. The patient said Dr. Ballard told him he would be ok to take a NTG if it continued. TT to Dr. Ballard for prn NTG order.
[2024-09-05] MEDS: NITROSTAT (SUBLINGUAL) 0.4 MG SL ×3 (20:23→22:24)
--- NOTE | 2024-09-05 21:12 | PTCARENOTE ---
Rec'd pt at change of shift. Pt AAO*3, VSS, and SR on TELE monitor. PT complained of 3/10 substernal CP, Dr. Crawford notified. Rec'd order for sublingual nitroglycerin and administered as ordered. O2 offered to pt for comfort, however pt
refused. Education provided to pt, pt verbalizes understanding and continues to refused. Pt reported relief with nitro administration. No EKG changes noted. BP stable. R radial site CDI. Pt resting with call vergara in reach and plan of care
ongoing. See MAR and flowchart for full pt care and assessment.
[2024-09-05] MEDS: TYLENOL 650 MG PO (22:12)
[2024-09-06 03:42] VITALS: BP 165/98
[2024-09-06 03:43] VITALS: BP 165/98
[2024-09-06] MEDS: NITROSTAT (SUBLINGUAL) 0.4 MG SL (03:53)
[2024-09-06] MEDS: TYLENOL 650 MG PO ×2 (03:55→07:38)
[2024-09-06 04:06] VITALS: BP 136/75
[2024-09-06 04:26] VITALS: BP 145/81
--- NOTE | 2024-09-06 04:33 | PTCARENOTE ---
Pt complained of further cp and discomfort, rating pain at a 6 and described at a burning pain at L upper lobe of chest. 1 sublingual nitroglycerin tablet given, pain was then rated at a 4. Pt refused further nitroglycerin. Tylenol also given for
R arm pain. Pt offered o2 for comfort but refused. SABA Beaulieu at bedside and pt refused any stronger pain medication. EKG obtained and unchanged. Pt refusing any further assistance with pain at this time.
[2024-09-06 04:37] LABS: Hematocrit 43.5 % (39.0-52.0); Hemoglobin 14.8 g/dL (13.0-18.0); Mean Corpuscular Hgb 30.2 pg (27.0-31.0); Mean Corpuscular Volume 88.8 fL (80.0-94.0); Mean Platelet Volume 11.7 fL (7.4-10.4); Platelet Count 161 10^3/uL (130-400)
[2024-09-06 05:07] LABS: Blood Urea Nitrogen 18 mg/dl (9-20); Calcium 9.3 mg/dl (8.4-10.2); Carbon Dioxide 23 mmol/L (22-30); Chloride 109 mmol/L (98-107); Estimated Creatinine Clearance 97 ml/min; Glucose 150 mg/dl (70-99); HDL Cholesterol 32 mg/dl; LDL Cholesterol, Calculated 23 mg/dl; Sodium 140 mmol/L (135-145); Total Cholesterol 79 mg/dl (50-199); Triglyceride 123 mg/dl (10-149); Very Low Density Lipoprotein 24 mg/dl (0-30); eGFR > 60.00
[2024-09-06 07:24] VITALS: BP 153/84
[2024-09-06] MEDS: COZAAR 100 MG PO (07:37)
[2024-09-06] MEDS: ASPIR LOW (ENTERIC COATED) 81 MG PO (07:37)
[2024-09-06] MEDS: ORETIC 25 MG PO (07:37)
[2024-09-06] MEDS: PLAVIX 75 MG PO (07:37)
--- NOTE | 2024-09-06 07:49 | PTCARENOTE ---
Received patient this morning sitting at the side of the bed, complaining of a headache and given tylenol. Patient states he still has midsternal chest burning, stated that last night he was not rating it correctly giving it a 3/10, but it was more
like a 5/10 and has not changed much this morning. States the NTG did help but he does not want it and he wants nothing else for it but wants to go home. Asking to have INT removed, told him yesterday and today that he needs to leave it in place
while an inpatient. Will notify cardiology.
--- NOTE | 2024-09-06 08:03 | W.PN.CD ---
Today's Communication / Plan
-
DAPT for at least 12 months, possibly lifelong.
Restart home antihypertensives.
Conservative management of pericardial stretch pain.
Discharge.
Impression / Plan
-
Impression/Plan: 68 y/o male with HTN, HLD, statin intolerance and CAD s/p multiple prior PCI admitted after elective PCI of 75% ostial/proximal LCx lesion was complicated by proximal stent migration into the dLMCA, requiring PTCA of the stent
struts into the LAD.
#CAD
-Chronic, progressive.
-Cardiac catheterization showed persistent ostial/proximal LCx 75% lesion, confirmed on IVUS.
-S/P PCI of ostial/proximal LCx lesion (Medtronic Madison Weber 3.5 x 22 CESAR, post dilated with 3.5 NCB throughout, 3.75 NCB in the midsent/proximal stent) with reduction in stenosis to 0%, maintaining CHAY III flow.
-PCI complicated by proximal migration of the stent into the dLMCA during deployment. This was treated with rewiring of the jailed LAD through the stent struts and simultaneous kissing balloons. IVUS confirms excellent stent expansion/apposition
with no obstruction of the ostial LAD.
-Residual chest pain overnight, partially responsive to SL nitro. Patient does not wish to have any other medications. I suspect this is due to pericardial stretch pain as compromised OMs were small and retained CHAY III flow after PCI.
-Conservative management.
-DAPT with aspirin and clopidogrel for 12 months, likely lifelong given presence of stent in the LMCA.
-LDL at goal.
#HLD/statin intolerance
-Chronic, stable.
-Total cholesterol = 79, LDL = 23, HDL = 32, Triglycerides = 123.
-Continue alirocumab.
#HTN
-Chronic, mildly uncontrolled.
-Continue losartan and HCTZ.
#PPx
-SCD's for DVT/VTE.
-No role for PPI.
#Dispo
-Stable for outpatient follow up.
-Discharge.
Subjective/Interval History:
PCI of LCx complicated by proximal migration into the dLMCA yesterday.
Treated with IVUS guided kissing PTCA of the LCx/LAD.
PCI compromised flow in the small OM1 and OM2 (< 1 mm vessels).
BP mildly elevated overnight.
He had residual chest pain, up to 09/18. Some relief with SL nitro, but not consistent.
DATA:
Cardiac catheterization/PCI, 09/05/2024:
CONCLUSIONS
1. Successful IVUS guided PCI of the 75% ostial/proximal circumflex lesion (Medtronic Madison Weber 3.5 x 22 CESAR, postdilated with a 3.5 NC balloon throughout and a 3.75 NC balloon in the proximal margin) with reduction in stenosis to 0%,
maintaining CHAY-3 flow, but complicated by proximal migration of the stent into the left main coronary artery as the stent was deployed, requiring PTCA from the left main into the LAD through the stent struts followed by IVUS guided bifurcation
PTCA with simultaneous kissing balloons in the left main/circumflex (Medtronic Euphora NC 3.75 x 12) and the left main/LAD (Medtronic Euphora 3.5 x 15) with successful creation of a neocarina and adequate stent strut dilation to avoid jailing of the
LAD.
2. Normal filling pressures (LVEDP = 12 mmHg at 93.9 kg).
Physical Exam
Vital Signs/Labs
Vital Signs
Temp Pulse Resp BP Pulse Ox
36.9 C 63 20 153/84 98
09/06/24 07:24 09/06/24 07:24 09/06/24 07:24 09/06/24 07:24 09/06/24 07:24
09/04/24 09/05/24 09/06/24
11:59 11:59 11:59
Actual Weight 93.9 kg
09/06/24 04:04
09/06/24 04:04
Triglycerides 123 mg/dl (10-149) 09/06/24 04:04
LDL Cholesterol, Calc 23 mg/dl 09/06/24 04:04
VLDL Cholesterol, Calc 24 mg/dl (0-30) 09/06/24 04:04
HDL Cholesterol 32 mg/dl 09/06/24 04:04
Physical Exam
Constitutional: No acute distress and Comfortable
EENT: Anicteric and Moist mucous membranes
Cardiovascular: Rhythm & rate is regular, Pedal edema is absent, JVD pressure is normal, S1S2 is normal and Murmur/rub/gallop absent
Respiratory: Respiratory effort normal, Lungs clear to auscul., Wheeze Absent, Crackles Absent and Rhonchi Absent
GI: Soft, Distention absent, Flat, Non tender and Normal bowel sounds
Neuro/Psych: AO x 3
Other: Cath Site (Right radial access site is C/D/I.)
Data Reviewed
-
Date of Service: September 06, 2024
Medical Decision Making: Reviewed Test Results, Independent Historian Assessment, Test Interpretation and Review of Case with other Provider
EKG: Tracing Personally Visualized and interpreted and Report Reviewed by me
Medical Tests (PFT, Pathology etc): Image Personally Visualized and interpreted, Report Reviewed by me, Discussed with Physician and Discussed with Patient
Labs: Labs Reviewed by me
Old Records: Reviewed
--- NOTE | 2024-09-06 08:56 | CM ---
Reviewed chart. Met with Mr. Tai to review discharge plans. He declined to participate in the interview. The discharge plan is to return home with his spouse when medically stable.
--- NOTE | 2024-09-06 11:06 | PTCARENOTE ---
Patient seen by Dr. Ballard and is ok for discharge home. Reviewed restrictions, appointments and medications with the patient and he states his understanding. Patient discharged home with his .
--- NOTE | 2024-09-06 15:34 | W.DS.TRANS ---
DC Summary - Display Director
-
Discharge Instructions:
Discharge Diagnosis/Procedures Angioplasty with stent to Left circumflex artery
Diet Low Cholesterol
Driving Restrictions No driving for 24 hours
Other Services Cardiac Rehab
Instructions:
Stand-Alone Forms: DC Instructions- Cath/EP Lab
Changes to Home Medications: No
Discharge Medications:
DC Medications w/original date entered in [facility]
losartan 100 mg tablet 100 mg PO DAILY Blood pressure 08/29/17
hydrochlorothiazide 25 mg tablet 25 mg PO DAILY Blood pressure 05/26/18
nitroglycerin 0.4 mg sublingual tablet 0.4 mg sublingual [id number] PRN chest pain 05/26/18
aspirin 81 mg tablet,delayed release 81 mg PO DAILY Blood Clot Prevention/Tx 12/05/22
clopidogrel 75 mg tablet 75 mg PO DAILY Blood Clot Prevention/Tx 12/05/22
fexofenadine 180 mg tablet 180 mg PO DAILY Allergies 08/02/23
alirocumab 150 mg/mL subcutaneous pen injector (Praluent Pen) 150 mg SC Q14D 09/05/24
Home Medication Changes
Pending Results: No
== END 2024-09-06 10:45 | disposition home or self-care (01) ==
LOC: CATH 08:17
PROVIDERS: Nurse Practitioner Adult Health; ATTENDING PHYSICIAN Student in an Organized Health Care Education/Training Program; FAMILY PHYSICIAN Family Medicine; OTHER PHYSICIAN Internal Medicine
DX: I25.112 Atherosclerotic heart disease of native coronary artery with refractory angina pectoris (principal); I10 Essential (primary) hypertension; E78.5 Hyperlipidemia, unspecified; Z95.5 Presence of coronary angioplasty implant and graft; T82.855A Stenosis of coronary artery stent, initial encounter; Y83.9 Surgical procedure, unspecified as the cause of abnormal reaction of the patient, or of later complication, without mention of misadventure at the time of the procedure; Z79.899 Other long term (current) drug therapy; Z79.02 Long term (current) use of antithrombotics/antiplatelets; Z79.82 Long term (current) use of aspirin
CPT/HCPCS: 80048; 80061; 85027; 85347; 92920; 92978; 93005; 93458; C1725; C1753; C1769; C1874; C1894; C9600; Q9967

== ENCOUNTER 2024-09-13 04:22 | Inpatient (IN) | payer OTHER, SELFPAY ==
[2024-09-12 22:21] VITALS: BP 141/78
[2024-09-12 22:43] LABS: % Basophils 0.6 % (0-2); % Eosinophils 4.1 % (0-6); % Immature Granulocytes 0.2 % (0-0.5); % Monocytes 8.3 % (1.7-9.3); % Neutrophils 65.8 % (42.2-75.2); Absolute Basophils 0.1 10^3/uL (0-0.2); Absolute Eosinophils 0.3 10^3/uL (0-0.7); Absolute Lymphocytes 1.7 10^3/uL (1.2-3.4); Absolute Monocytes 0.7 10^3/uL (0.1-0.6); Absolute Neutrophils 5.3 10^3/uL (1.4-6.5); Hematocrit 42.2 % (39.0-52.0); Hemoglobin 14.8 g/dL (13.0-18.0); Mean Corp Hgb Conc. 35.1 g/dL (33.0-37.0); Mean Corpuscular Volume 88.5 fL (80.0-94.0); Mean Platelet Volume 11.2 fL (7.4-10.4); Nucleated Red Blood Cells % 0 % (-); Platelet Count 174 10^3/uL (130-400); Red Blood Cell Count 4.77 10^6/uL (4.70-6.10); Red Cell Dist. Width 12.7 % (11.5-14.5)
[2024-09-12 22:57] LABS: ALT (SGPT) 34 U/L (0-50); AST (SGOT) 23 U/L (17-59); Albumin 4.5 g/dl (3.5-5.0); Alkaline Phosphatase 92 U/L (38-126); Blood Urea Nitrogen 27 mg/dl (9-20); Calcium 9.5 mg/dl (8.4-10.2); Carbon Dioxide 28 mmol/L (22-30); Chloride 107 mmol/L (98-107); Glucose 166 mg/dl (70-99); Potassium 3.9 mmol/L (3.5-5.1); Sodium 141 mmol/L (135-145); Total Bilirubin 0.3 mg/dl (0.2-1.3); Total Protein 7.1 g/dl (6.3-8.2); eGFR > 60.00
[2024-09-12 23:16] LABS: Troponin I 0.096 ng/ml
--- NOTE | 2024-09-12 23:59 | ED.GENMED ---
History of Present Illness
<Malissa York PA-C - Last Filed: 09/13/24 10:22>
General
Chief Complaint: Cardiac Symptoms
Source: patient
Exam Limitations: none
Time Seen by Provider: 09/12/24 23:24
History of Present Illness
History of Present Illness:
68yoM with a history of coronary artery disease, hypertension, hyperlipidemia presenting for evaluation of chest pain. Patient had a cardiac catheterization 1 week ago and had a stent placed. He states he had complications during the procedure and
the stent migrated. He was kept overnight and discharged the next day. Patient reports ongoing chest pain since the cardiac catheterization. He has never had chest pain after stent placement previously. He walked about 200 yards this evening
around 8 PM when he started to have worsening chest pain. He took a nitroglycerin with some improvement and decided to come to the ED. He continues to have mild chest discomfort. He denies any shortness of breath, diaphoresis, dizziness, syncope,
nausea.
Past History
<Malissa York PA-C - Last Filed: 09/13/24 10:22>
Past History
ED Past Medical History: Asthma, CAD (Angina), HTN, Hypercholesterolemia, NIDDM (Just diagnosed but no medication as of Nov 2021) and Psychiatric (Anxiety)
ED Past Surgical History: Cardiac (Stent)
Social History
Tobacco: Non-smoker
Alcohol: None
Drug: None
Personal:
Living: with family
Employment: Employed
Family History
Family History: Hypertension
Phy Exam
<Malissa York PA-C - Last Filed: 09/13/24 10:22>
General Physical Exam
General Presentation: well appearing and no apparent distress
General Skin: warm and dry
General Habitus: normal
General Mental: alert
ENT Exam
ENT Exam: normocephalic
Cardiovascular Exam
Cardiovascular Exam: regular rate/rhythm, no edema and no murmur
Pulmonary Exam
Pulmonary Exam: lungs clear, no respiratory distress, no rales, no crackles, no rhonchi and no wheezing
Neurological Exam
Neurological Exam: alert
Rebecca Coma Scale
Eye Opening: Spontaneous
Verbal Response: Oriented
Motor Response: Obeys Commands
GCS Total Score: 15
Skin Exam
Skin Exam: normal color and warm/dry
Psychiatric Exam
Psychiatric Exam: normal mood/affect
<David Diaz DO - Last Filed: 09/13/24 02:19>
Rebecca Coma Scale
GCS Total Score: 15
Course
<Malissa York PA-C - Last Filed: 09/13/24 10:22>
Orders/Labs/Results
Orders:
Orders
09/12/24 22:24
Electrocardiogram (*1) Urgent
Reason for Study: Chest Pain
EKG- Treatment ONCE
09/12/24 22:33
Complete Blood Count/With Diff Urgent
Comprehensive Metabolic Panel Urgent
Troponin I Urgent
09/12/24 23:53
Cardiac Monitoring- Treatment ONCE
09/12/24 23:54
EKG- Treatment ONCE
09/13/24 00:01
CR Chest - 2 Views Urgent
Reason For Exam: CP
09/13/24 00:30
Electrocardiogram (*1) Urgent
Reason for Study: Chest Pain
09/13/24 00:38
Troponin I Urgent
09/13/24 02:18
Aspirin Chewable [Low Strength Aspirin] 324 mg PO NOW STA
Nitroglycerin Sublingual [Nitrostat (Sublingual)] 0.4 mg SL [id number] PRN
09/13/24 03:12
Admit/Transfer Patient As Directed
Co-Sign Provider:
Level of Care: Inpatient admission
Assign to:: Telemetry
Physician / Group: Jose Corona
Diagnosis: Chest pain
Reason for Telemetry: Chest Pain syndromes
Date to Stop Telemetry: 09/15/24
Time to Stop Telemetry: 11:00
Reason for Hospitalization: chest pain
Expected length of stay greater than two midnights?: No
ELOS- Estimated Length of Stay in days: 1
I certify the patient meets the requirements for IP care: Yes
09/13/24 03:14
PRN Pain Medication Management As Directed
May give lesser potent ordered pain med per pt: Yes
preference::
Protocol:: Medication orders for pain may be administered in a
manner that supports deferring to patient preference
when the pt is:
- Requesting an ordered lesser potent pain medication.
Least to most potent pain medications are defined
as: acetaminophen < NSAID < tramadol < opioids
(morphine, oxycodone, hydromorphone).
- Requesting a lesser dose of the same medication IF
ORDERED.
- Requesting a less intrusive route of administration
if both routes are prescribed by the provider (PO <
IV).
09/13/24 03:15
Code Status As Directed
Resuscitation Status: Full Code
09/13/24 04:26
Electrocardiogram (*1) Q6H
Reason for Study: Chest Pain
Comment: at admission and Q3H for total of 3, to be done with each troponin
09/13/24 04:26
Activity As Directed
Activity Level: Out of Bed-Early Mobility
INT (Intravenous Needle Therapy) As Directed
Comment: maintain peripheral IV access
Intake/ Output As Directed
Frequency: Per unit guidelines
Pneumatic Compression Sleeves As Directed
Type: Knee high
Vital Signs As Directed
Frequency: q4h
DX Deep Vein Thrombosis Video Routine
09/13/24 04:46
DC Protocol for Telemetry ONCE
09/13/24 04:54
Complete Blood Count/With Diff IN AM
Comprehensive Metabolic Panel IN AM
Glycohemoglobin (HgbA1c) Routine
Troponin I Q3H
Comment: at admit & Q3H for 3 total including ED draws, obtain ECG with each level
09/13/24 Breakfast
NPO
Allow oral meds: No
Allow clear liquids: No
NPO with Ice Chips: Yes
Weight As Directed
Frequency: Once
09/13/24 07:09
Troponin I Q3H
Comment: at admit & Q3H for 3 total including ED draws, obtain ECG with each level
09/13/24 08:00
Clopidogrel Bisulfate [Plavix] 75 mg PO DAILY
09/13/24 10:06
Troponin I Q3H
Comment: at admit & Q3H for 3 total including ED draws, obtain ECG with each level
09/13/24 10:26
Electrocardiogram (*1) Q6H
Reason for Study: Chest Pain
Comment: at admission and Q3H for total of 3, to be done with each troponin
09/13/24 16:26
Electrocardiogram (*1) Q6H
Reason for Study: Chest Pain
Comment: at admission and Q3H for total of 3, to be done with each troponin
Abnormal Lab Results
09/12/24 09/13/24
22:33 00:38
MPV 11.2 H fL
(7.4-10.4)
Absolute Monos (auto) 0.7 H 10^3/uL
(0.1-0.6)
BUN 27 H mg/dl
(9-20)
Glucose 166 H mg/dl
(70-99)
Troponin I 0.096 H* ng/ml 0.095 H* ng/ml
09/12/24 22:33
09/12/24 22:33
Vital Signs
Initial and Last Documented VS:
Initial Vital Signs
Temp Pulse Resp BP Pulse Ox
98.5 F 73 16 141/78 99
09/12/24 22:21 09/12/24 22:21 09/12/24 22:21 09/12/24 22:21 09/12/24 22:21
Last Documented Vital Signs
Temp Pulse Resp BP Pulse Ox
97.6 F 63 18 155/81 98
09/13/24 07:51 09/13/24 08:24 09/13/24 07:51 09/13/24 08:24 09/13/24 07:51
<David Diaz, DO - Last Filed: 09/13/24 02:19>
Orders/Labs/Results
Orders:
Orders
09/12/24 22:24
Electrocardiogram (*1) Urgent
Reason for Study: Chest Pain
EKG- Treatment ONCE
09/12/24 22:33
Complete Blood Count/With Diff Urgent
Comprehensive Metabolic Panel Urgent
Troponin I Urgent
09/12/24 23:53
Cardiac Monitoring- Treatment ONCE
09/12/24 23:54
EKG- Treatment ONCE
09/13/24 00:01
CR Chest - 2 Views Urgent
Reason For Exam: CP
09/13/24 00:30
Electrocardiogram (*1) Urgent
Reason for Study: Chest Pain
09/13/24 00:38
Troponin I Urgent
09/13/24 02:18
Aspirin Chewable [Low Strength Aspirin] 324 mg PO NOW STA
Nitroglycerin Sublingual [Nitrostat (Sublingual)] 0.4 mg SL [id number] PRN
09/13/24 03:12
Admit/Transfer Patient As Directed
Co-Sign Provider:
Level of Care: Inpatient admission
Assign to:: Telemetry
Physician / Group: Jose Corona
Diagnosis: Chest pain
Reason for Telemetry: Chest Pain syndromes
Date to Stop Telemetry: 09/15/24
Time to Stop Telemetry: 11:00
Reason for Hospitalization: chest pain
Expected length of stay greater than two midnights?: No
ELOS- Estimated Length of Stay in days: 1
I certify the patient meets the requirements for IP care: Yes
09/13/24 03:14
PRN Pain Medication Management As Directed
May give lesser potent ordered pain med per pt: Yes
preference::
Protocol:: Medication orders for pain may be administered in a
manner that supports deferring to patient preference
when the pt is:
- Requesting an ordered lesser potent pain medication.
Least to most potent pain medications are defined
as: acetaminophen < NSAID < tramadol < opioids
(morphine, oxycodone, hydromorphone).
- Requesting a lesser dose of the same medication IF
ORDERED.
- Requesting a less intrusive route of administration
if both routes are prescribed by the provider (PO <
IV).
09/13/24 03:15
Code Status As Directed
Resuscitation Status: Full Code
09/13/24 04:26
Electrocardiogram (*1) Q6H
Reason for Study: Chest Pain
Comment: at admission and Q3H for total of 3, to be done with each troponin
09/13/24 04:26
Activity As Directed
Activity Level: Out of Bed-Early Mobility
INT (Intravenous Needle Therapy) As Directed
Comment: maintain peripheral IV access
Intake/ Output As Directed
Frequency: Per unit guidelines
Pneumatic Compression Sleeves As Directed
Type: Knee high
Vital Signs As Directed
Frequency: q4h
DX Deep Vein Thrombosis Video Routine
09/13/24 04:46
DC Protocol for Telemetry ONCE
09/13/24 04:54
Complete Blood Count/With Diff IN AM
Comprehensive Metabolic Panel IN AM
Glycohemoglobin (HgbA1c) Routine
Troponin I Q3H
Comment: at admit & Q3H for 3 total including ED draws, obtain ECG with each level
09/13/24 Breakfast
NPO
Allow oral meds: No
Allow clear liquids: No
NPO with Ice Chips: Yes
Weight As Directed
Frequency: Once
09/13/24 07:09
Troponin I Q3H
Comment: at admit & Q3H for 3 total including ED draws, obtain ECG with each level
09/13/24 08:00
Clopidogrel Bisulfate [Plavix] 75 mg PO DAILY
09/13/24 10:06
Troponin I Q3H
Comment: at admit & Q3H for 3 total including ED draws, obtain ECG with each level
09/13/24 10:26
Electrocardiogram (*1) Q6H
Reason for Study: Chest Pain
Comment: at admission and Q3H for total of 3, to be done with each troponin
09/13/24 16:26
Electrocardiogram (*1) Q6H
Reason for Study: Chest Pain
Comment: at admission and Q3H for total of 3, to be done with each troponin
Abnormal Lab Results
09/12/24 09/13/24
22:33 00:38
MPV 11.2 H fL
(7.4-10.4)
Absolute Monos (auto) 0.7 H 10^3/uL
(0.1-0.6)
BUN 27 H mg/dl
(9-20)
Glucose 166 H mg/dl
(70-99)
Troponin I 0.096 H* ng/ml 0.095 H* ng/ml
09/12/24 22:33
09/12/24 22:33
Vital Signs
Initial and Last Documented VS:
Initial Vital Signs
Temp Pulse Resp BP Pulse Ox
98.5 F 73 16 141/78 99
09/12/24 22:21 09/12/24 22:21 09/12/24 22:21 09/12/24 22:21 09/12/24 22:21
Last Documented Vital Signs
Temp Pulse Resp BP Pulse Ox
97.6 F 63 18 155/81 98
09/13/24 07:51 09/13/24 08:24 09/13/24 07:51 09/13/24 08:24 09/13/24 07:51
<Malissa York PA-C - Last Filed: 09/13/24 10:22>
MDM/Problems Addressed
Differential Diagnosis Includes:
68yoM here with chest pain. S/p cardiac catheterization with stent 1 week ago. Ongoing chest pain since procedure. Reports worsening chest pain since walking this evening. Denies associated nausea, SOB, diaphoresis. VSS. He is well appearing in no
distress. Exam reassuring. Differential diagnosis includes but is not limited to: ACS, stent occlusion, vasospasm
Initial ED plan: Workup obtained in triage. EKG shows NSR with nonspecific ST changes. Troponin elevated at 0.096 which may be secondary to the recent cardiac catheterization procedure. Discussed options with patient including admission vs. trending
troponins. After discussion, will check repeat troponin/EKG and reassess.
Final assessment: Repeat troponin 0.095 and EKG unchanged. Patient not interested in admission at this time and prefers to f/u with cardiology tomorrow as an outpatient. Will have patient f/u with chest pain hotline.
<Malissa York PA-C - Last Filed: 09/13/24 10:22>
*EKG
Interpreted by ED Provider?: Yes
EKG Intrepretation Date: 09/13/24
Heart Rate: 78
Rate: normal
Rhythm: sinus
Duncan: normal axis
Interval: normal interval
QRS Pattern: normal QRS
Ischemia: non-specific ST changes
*Critical Care Note
Total Time (30-74mins, 75-104mins- exclusive of procedures): Not Applicable
<David Diaz, DO - Last Filed: 09/13/24 02:19>
Update Note
Update Note:
2:18 AM as patient was being discharged, symptoms are returning. Given his worsening chest discomfort that is improved with nitro, will admit for cardiac evaluation
ED Attending Note
<Malissa York PA-C - Last Filed: 09/13/24 10:22>
-
Portions of this chart may have been created with voice recognition software.� Occasional wrong word or��sound alike� substitutions may have occurred due to the inherent limitations of voice recognition software.
<David Diaz, DO - Last Filed: 09/13/24 02:19>
ED Attending Note
Patient seen and examined by attending physician: Yes
I performed the substantive portion of visit, reviewed & personally made and approve the management plan that is documented in note by myself or SARA.: Yes
ED Attending Note:
I have seen and evaluated the patient with a [id number] encounter. I have spoken to the advance practicer provider and involved in the medical history, the physical exam, medical decision making.
Evaluation and management service: agree unless noted differently below.
Results interpretation: agree unless noted differently below.
Focused HPI: 68-year-old male presenting with exertional dyspnea. Patient recently had cardiac stents but still has persistent symptoms
Physical exam: Sitting in bed comfortably. Heart regular rate and rhythm
Medical Decision Making: Initial troponin mildly elevated. This is not unexpected given catheterization was 1 week ago. Will obtain second troponin. If it is rising, will admit. If it is decreasing, will discharge
Discharge Plan
Departure
Patient Disposition: Admit
Date of Disposition: 09/13/24
Time of Disposition: 01:31
Admit to: Telemetry
Presentation/result/management discussed w/ accepting MD/DO: Hospitalist
Patient with high blood pressure during this ER visit?: Yes
Discharge Problem:
Chest pain
Interventions
Interventions:
*General Assessment Last Done: 09/13/24 00:39
*Neglect/Abuse Screening Last Done: 09/12/24 22:21
*ED- Fall Risk Assessment Last Done: 09/13/24 00:39
*Nursing Disposition Last Done: 09/13/24 04:05
ED- Pulmonary Assessment Last Done: 09/13/24 00:25
ED- Cardiac Assessment Last Done: 09/13/24 00:25
Discharge Date and Time
Discharge Date/Time: 09/13/24 04:25
[2024-09-13] VITALS (10 sets, daily range): BP systolic 126–156; BP diastolic 77–84; BMI 27.1
--- NOTE | 2024-09-13 00:03 | EDRN ---
Attempted to place pt on telemetry monitoring, pt refusing adamantly, utilizing his cellphone. Educated pt regarding importance of monitoring his cardiac rhythm, pt states 'you know what, I know my heart will be fine .. just take an EKG in a half
hour.' PA updated regarding pt's refusal.
pt ambulated to X-RAY with this RN, not PEDRAZA. pt states that his chest pain is directly in the center of his chest and it's a 4/10.
[2024-09-13 01:19] LABS: Troponin I 0.095 ng/ml
--- NOTE | 2024-09-13 02:00 | EDRN ---
Attempted to discharge patient and patient is having second thoughts about going home, states that his chest pain is still present. ED provider Dr Diaz made aware, will speak to patient
--- NOTE | 2024-09-13 02:25 | EDRN ---
pt being admitted after speaking to ED provider again
[2024-09-13] MEDS: LOW STRENGTH ASPIRIN 324 MG PO (02:39)
[2024-09-13] MEDS: NITROSTAT (SUBLINGUAL) 0.4 MG SL (02:43)
--- NOTE | 2024-09-13 03:26 | HPS.HSE ---
Family Physician
-
Family Physician: Dion Tran
Chief Complaint
-
'chest pain'
History of Present Illness
68 y/o patient with PMH of Coronary Artery Disease, Hypertension, Hyperlipidemia, presenting to ER with c/o Chest pain. Patient describes as 'burning sensation' 'it hurts' pointing at the Left side of the Mid chest. Stated he had a 'complicated'
catheterization done last Tuesday 09/05 with two stents. Ever since he is feeling this discomfort and was seen by primary Dr. who stated he needs to consult with sales inspector. After walking 200 yards last evening patient felt same discomfort and
took nitro tab as the pain was intense and decided to come to ER. Denies shortness of breath, dizziness, sweating at that time. At present states pain is at 2/10 as he received Nitro in ER. Lungs clear, HR RRR, +BS 4 quad, non tender, voiding
without difficulty. stable VS
Medical History
Past Medical History
Past Medical History: Reports CAD, HTN, Hypercholesterolemia and NIDDM (dx in 2021, not on medications )
Past Surgical History: Reports Cardiac (9 cardiac catheterization with 3 blockages and 5 stents )
Social History
Tobacco: Non-smoker
Alcohol: None
Drug: None
Personal:
Living: With Family
Family History
Family History: Hypertension
Allergies / Home Medications
Allergies reflects when Allergies were last updated in [employer] [employer].
Home Medications with original date entered in [employer]
Allergy/Medication List:
Allergies
Allergy/AdvReac Type Severity Reaction Status Date / Time
amlodipine Allergy cough Verified 09/12/24 22:24
atorvastatin Allergy MUSCLE Verified 09/12/24 22:24
ACHES
lisinopril Allergy SLEEPINESS Verified 09/12/24 22:24
metoprolol Allergy sleepiness Verified 09/12/24 22:24
rosuvastatin (From Crestor) Allergy MYALGIAS Verified 09/12/24 22:24
Ikqbsix-JPG-KpP Reductase Allergy MUSCLE Verified 09/12/24 22:24
Inhibitor (Evudiym-Dfj-Jys ACHES
Reductase Inhibitor)
Home Medications
losartan 100 mg tablet 100 mg PO DAILY Blood pressure 08/29/17
hydrochlorothiazide 25 mg tablet 25 mg PO DAILY Blood pressure 05/26/18
nitroglycerin 0.4 mg sublingual tablet 0.4 mg sublingual [id number] PRN chest pain 05/26/18
aspirin 81 mg tablet,delayed release 81 mg PO DAILY Blood Clot Prevention/Tx 12/05/22
clopidogrel 75 mg tablet 75 mg PO DAILY Blood Clot Prevention/Tx 12/05/22
fexofenadine 180 mg tablet 180 mg PO DAILY Allergies 08/02/23
alirocumab 150 mg/mL subcutaneous pen injector (Praluent Pen) 150 mg SC Q14D 09/05/24
Review of Systems
-
History Source: Patient
A 12 point ROS was completed and negative except as noted: Yes
Constitutional: Reports No Symptoms
EENT: Reports No Symptoms
Respiratory: Reports No Symptoms
Cardiac: Reports See HPI
Abdomen/GI: Reports No Symptoms
: Reports No Symptoms
Musculoskeletal: Reports No Symptoms
Skin: Reports No Symptoms
Neurological: Reports No Symptoms
Endocrine: Reports No Symptoms
Hematologic/Lymphatic: Reports No Symptoms
Psych: Reports No Symptoms
Physical Exam
Vital Signs
Vital Signs
Temp Pulse Resp BP Pulse Ox
98.5 F 73 16 131/72 99
09/12/24 22:21 09/12/24 22:21 09/12/24 22:21 09/13/24 02:48 09/12/24 22:21
Physical Exam
General: Well Developed, Well Nourished and No Apparent Distress
HEENT: NormoCephalic, Moist mucous membranes and Atraumatic
Respiratory: Clear and Non Labored Respirations
Cardiac: S1/S2 and Regular Rhythm
Breast: Deferred by me
GI: Soft, Non Tender, Non Distended and Normal Bowel Sounds
Rectal: Deferred by Provider
Genito-urinary: Deferred by me
Musculoskeletal: No Clubbing, No Cyanosis and No Edema
Skin: Warm and Dry
Neuro: Awake, AO x 3 and Nonfocal/grossly intact
Hematologic/Lymphatic: No Lymphadenopathy
Psych: Calm and Agitated (mild )
Laboratory Results
-
09/12/24 22:33
09/12/24 22:33
Laboratory Results
Total Bilirubin 0.3 mg/dl (0.2-1.3) 09/12/24 22:33
AST 23 U/L (17-59) 09/12/24 22:33
ALT 34 U/L (0-50) 09/12/24 22:33
Alkaline Phosphatase 92 U/L (38-126) 09/12/24 22:33
Troponin I 0.095 ng/ml H* 09/13/24 00:38
Data Reviewed
-
Diagnostic Radiology: Other (chest xray pending )
Lab Data: Labs Reviewed by me
Impression/Plan
-
68 y/o patient with chest pain
# likely Post procedural events, Coronary Artery Spasm?
-s/p catheterization 09/05
-recent discharge dx Angioplasty with stent to left circumflex artery
-Troponin 0.096 0.095
-Troponin AM EKG
-CBC BMP Mag AM
-Nitroglycerin tab prn
-ASA 325
-NPO
-Telemetry
-chest X-ray pending
-Patient refused IV placement, risks addressed, verbalized understanding
--Admit to [facility] Dr. Corona
# Coronary Artery Disease (Angina)
- Cath with stents
- ASA, Plavix
#Hypercholesterolemia
- Praluent Pen 150 mg SC q14d
#Hypertension
-Losartan 100mg PO daily
-Hydrochlorothiazide 25mg PO daily
# NIDDM
-diet and exercise
# seasonal Allergies
-Fexofenadine 180mg
Full Code
SCD's
--- NOTE | 2024-09-13 04:50 | PTCARENOTE ---
Pt arrived from ED via stretcher and ambulated to bed. Pt is AAOx3, VSS, and complains of 4/10 chest pain. Pt refused nitroglycerin and IV access but agreeable to wear tele monitor. RN unable to do full proper skin assessment due to pt refusing to
change into gown. Pt is oriented to room with call vergara within reach.
[2024-09-13 05:05] LABS: % Basophils 0.4 % (0-2); % Eosinophils 4.1 % (0-6); % Immature Granulocytes 0.4 % (0-0.5); % Monocytes 8.4 % (1.7-9.3); % Neutrophils 63.7 % (42.2-75.2); Absolute Eosinophils 0.3 10^3/uL (0-0.7); Absolute Lymphocytes 1.7 10^3/uL (1.2-3.4); Absolute Monocytes 0.6 10^3/uL (0.1-0.6); Absolute Neutrophils 4.8 10^3/uL (1.4-6.5); Hematocrit 42.8 % (39.0-52.0); Hemoglobin 14.8 g/dL (13.0-18.0); Mean Corp Hgb Conc. 34.6 g/dL (33.0-37.0); Mean Corpuscular Hgb 30.5 pg (27.0-31.0); Mean Corpuscular Volume 88.2 fL (80.0-94.0); Mean Platelet Volume 11.4 fL (7.4-10.4); Nucleated Red Blood Cells % 0 % (-); Platelet Count 172 10^3/uL (130-400); Red Blood Cell Count 4.85 10^6/uL (4.70-6.10); Red Cell Dist. Width 12.8 % (11.5-14.5); White Blood Cell Count 7.5 10^3/uL (4.8-10.8)
[2024-09-13 05:33] LABS: ALT (SGPT) 34 U/L (0-50); AST (SGOT) 21 U/L (17-59); Albumin 4.3 g/dl (3.5-5.0); Alkaline Phosphatase 83 U/L (38-126); Blood Urea Nitrogen 26 mg/dl (9-20); Calcium 9.3 mg/dl (8.4-10.2); Carbon Dioxide 26 mmol/L (22-30); Chloride 108 mmol/L (98-107); Estimated Creatinine Clearance 80 ml/min; Glucose 138 mg/dl (70-99); Potassium 3.9 mmol/L (3.5-5.1); Sodium 142 mmol/L (135-145); Total Bilirubin 0.5 mg/dl (0.2-1.3); Total Protein 6.6 g/dl (6.3-8.2); eGFR > 60.00
[2024-09-13 05:42] LABS: Troponin I 0.106 ng/ml
[2024-09-13 07:50] LABS: Troponin I 0.097 ng/ml
--- NOTE | 2024-09-13 08:15 | HPS.HSE ---
Family Physician
-
Family Physician: Dion Tran
Chief Complaint
-
chest discomfort
History of Present Illness
68 y/o male ( [facility] patient) with CAD with stenting (LAD and D1 in 2014, OM3 2021, another stent to edge stenosis at distal OM3 04/2022, recent stenting 09/05/24 as detailed below) , suspected microvascular angina, hypertension, dyslipidemia, statin
intolerance on Praluent, and preDM who is here for evaluation of chest discomfort. Briefly, chest discomfort led to a recent cath with complex stenting as detailed below. His chest pain never went away post-stenting, and he noted it mostly with
exertion. However, yesterday it became more significant when he was walking up an incline. He required a nitro, which took the pain away. He came to the ER. Trops around 0.1. EKG non-specific T abnormality, no acute ischemic change on my review. He
has had chest discomfort (midsternal burning) on and off throughout the night, including now. Nitro helped overnight, but he is declining one now. He declined an IV as well, but knows he will absolutely need one if any procedures are needed. He is
in no distress at the time of my assessment. Interestingly, while his CP is worse since stenting, his SOB and energy have improved.
Medical History
Past Medical History
Past Medical History: Reports CAD, HTN, Hypercholesterolemia and Other (as above)
Past Surgical History: Reports Cardiac (multiple caths with stents)
Social History
Tobacco: Non-smoker
Family History
Family History: CAD
Allergies / Home Medications
Allergies reflects when Allergies were last updated in [facility] [employer] [facility].
Home Medications with original date entered in [employer] [facility]
Allergy/Medication List:
Allergies: amlodipine, statin, lisinopril, metoprolol
Also noted as intoelrances: imdur, ranexa
Medications:
ASA 81 mg PO daily
Plavix 75 mg PO daily
fexofenadine 180 mg PO daily
HCTZ 25 mg PO daily
losartan 100 mg PO daily
nitro PRN
Praulent Pen 150 mg SC Q 14D
Review of Systems
-
History Source: Patient
A 12 point ROS was completed and negative except as noted: Yes
Cardiac: Reports Chest Pain
Physical Exam
Vital Signs
Vital Signs
Temp Pulse Resp BP Pulse Ox
97.6 F 63 18 155/81 98
09/13/24 07:51 09/13/24 07:51 09/13/24 07:51 09/13/24 07:51 09/13/24 07:51
Physical Exam
General: Well Developed, Well Nourished and No Apparent Distress
HEENT: NormoCephalic and Anicteric
Respiratory: Clear and Non Labored Respirations
Cardiac: Regular Rhythm
Skin: Warm and Dry
Neuro: AO x 3
Psych: Calm
Laboratory Results
-
09/13/24 04:54
09/13/24 04:54
Laboratory Results
Total Bilirubin 0.5 mg/dl (0.2-1.3) 09/13/24 04:54
AST 21 U/L (17-59) 09/13/24 04:54
ALT 34 U/L (0-50) 09/13/24 04:54
Alkaline Phosphatase 83 U/L (38-126) 09/13/24 04:54
Troponin I 0.097 ng/ml H* 09/13/24 07:09
Data Reviewed
-
Diagnostic Radiology: Report Reviewed by me (CXR: No acute cardiopulmonary process.)
Medical Tests (Nuc Med, Echo, EKG etc): Image Personally Visualized and interpreted (EKG SR, nonspecific ST abnormality) and Report Reviewed by me (cath as detailed)
Lab Data: Labs Reviewed by me
Impression/Plan
-
IMPRESSION/PLAN:
Chest discomfort:
-does sound possibly anginal, but trops flat (abnormal, but with recent cardiac procedure) and EKG's unremarkable to my review.
-declining nitro at this time, but he said he will take it if it gets worse. He is in no distress at the time of my assessment.
-complicating the situation is that he has multiple medication intolerances, which include antianginals - metoprolol, amlodipine, diltiazem, Ranexa
-will obtain echo
-case discussed with Dr. Ballard who will evaluate patient
Abnormal troponin:
-etiology not entirely clear to me at this time, possibly related to recent cardiac procedure
-EKG's unremarkable
CAD with stenting: severe
-continue DAPT, Praluent. Intolerant to statins.
-Cardiac cath 09/05/24: Successful IVUS guided PCI of the 75% ostial/proximal circumflex lesion (Medtronic [place] 3.5 x 22 CESAR, postdilated with a 3.5 NC balloon throughout and a 3.75 NC balloon in the proximal margin) with reduction in
stenosis to 0%, maintaining CHAY-3 flow, but complicated by proximal migration of the stent into the left main coronary artery as the stent was deployed, requiring PTCA from the left main into the LAD through the stent struts followed by IVUS guided
bifurcation PTCA with simultaneous kissing balloons in the left main/circumflex (Medtronic [place] NC 3.75 x 12) and the left main/LAD (Medtronic E[place] 3.5 x 15) with successful creation of a neocarina and adequate stent strut dilation to avoid
jailing of the LAD.
HTN:
-continue meds and monitor
[2024-09-13] MEDS: COZAAR 100 MG PO (08:24)
[2024-09-13] MEDS: ORETIC 25 MG PO (08:24)
[2024-09-13] MEDS: PLAVIX 75 MG PO (08:28)
[2024-09-13 09:53] LABS: Glycohemoglobin (HgbA1c) 6.7 % (4.0-5.6)
[2024-09-13 10:39] LABS: Troponin I 0.077 ng/ml
--- NOTE | 2024-09-13 16:55 | CM ---
Attempted to interview for [place] . Pt said 'You can ask me questions but Im not going to answer.'
CM excused herself.
Pt said he got discharge planning under controll and he needed no help.
Spoke with Scott RN patient has not been talkative .
PLAN Home no needs
--- NOTE | 2024-09-13 17:37 | ITS.CL.CATH ---
Port Engineer - Catheterization
Cardiac Catheterization
Procedure Report:
CARDIAC CATHETERIZATION REPORT
Date of Procedure: 09/13/2024
Referring: Antonio Funes M.D.
INDICATION: Low-level troponin elevation, known coronary artery disease with recent PCI, concern for recurrent ACS.
PROCEDURE:
1. Left heart catheterization.
2. Coronary angiography
A total of 0 minutes of procedural/moderate sedation was utilized. An independent medical psychotherapist was present to assist with and help manage the patient's level of consciousness and physiologic status.
ACCESS:
1. 6 Nepali right radial artery using a modified Seldinger technique.
CATHETERS:
1. 5 Nepali JR4.
2. 5 Nepali JL 3.5.
HEMODYNAMIC DATA
Weight (kg): 90.3
AO (s/d/x, mmHg): 137/83/107
LV (s/x mmHg): 140/10
LEFT VENTRICULOGRAPHY: Not performed.
CORONARY ANGIOGRAPHY
Dominance: Right.
Left Main: Normal size, bifurcating artery. There is no coronary artery disease.
LAD: Normal size vessel giving rise to 1 significant diagonal. Patent stents are observed in the ostium of the proximal diagonal as well as the proximal LAD without evidence of in-stent restenosis. There are luminal irregularities elsewhere.
Ramus: Congenitally absent.
Circumflex: Large size, nondominant vessel which is essentially a single large obtuse marginal which subsequently divides into several smaller daughter vessels. There are several small, 0.5 mm diameter branch vessels off of the obtuse marginal
that are partially occluded by previously placed stents. Patent stents are observed in the distal left main coronary artery extending into the proximal circumflex and into the obtuse marginal. There is no evidence of in-stent restenosis.
RCA: Normal size, dominant vessel. There are luminal irregularities.
INTERVENTION(S)
None.
Closure Device: Vascular band.
Radiation (mGy): 275.67
DAP (cm2.Gy): 21.4282
Fluoroscopy time (minutes): 1.5
CONCLUSIONS
1. Right dominant circulation with patent stents in the proximal LAD and first diagonal, patent stent from the left main into the proximal circumflex and extending into the first obtuse marginal (previously treated with kissing balloon to dilate
the stent struts and avoid jailing of the ostial LAD) with several small, 0.5 mm diameter branch vessels off of the obtuse marginal that are partially occluded due to stent placement with CHAY II flow.
2. Normal filling pressures (LVEDP = 10 mmHg at 90.3 kg).
RECOMMENDATIONS:
1. Expectant management after cardiac catheterization via right radial approach.
2. Limited weight bearing on the right wrist for one week.
3. Continue dual antiplatelet therapy with aspirin and clopidogrel for at least 12 months, followed by aspirin indefinitely.
4. The patient has a significant hesitation to start medication. I have recommended a combination of diltiazem and ranolazine given his prior intolerances of beta-blockers, long-acting nitrates and nondihydropyridine calcium channel blockers. He
would like to read about the proposed medications prior to starting them.
5. Continue aggressive secondary prevention with alirocumab. Goal LDL <55.
6. The patient may be discharged home after meeting hemostasis criteria after cardiac catheterization from a right radial approach.
Copy to: Aaron Terry M.D., Ph.D., Antonio Funes M.D., Dion Tran M.D.
Bernardo Ballard DO, FACC, FACP
[2024-09-13] MEDS: NSS 1000 IV (18:25)
--- NOTE | 2024-09-13 21:00 | PTCARENOTE ---
Pt discharged and escorted by staff via ambulation with spouse transporting home. RN reviewed discharge instructions, given copy of cardiac cath report, removed IV, and tele monitor. Pt cardiac cath site- dressing is dry and intact and VSS.
--- NOTE | 2024-09-14 07:23 | W.DS.TRANS ---
DC Summary - Flag Maker
-
Discharge Instructions:
Discharge Diagnosis/Procedures Cardiac cath
Diet Low Cholesterol
Driving Restrictions As prior to admission
Instructions:
Stand-Alone Forms: DC Instructions- Cath/EP Lab
Changes to Home Medications: No
Discharge Medications:
DC Medications w/original date entered in [employer]
losartan 100 mg tablet 100 mg PO DAILY Blood pressure 08/29/17
hydrochlorothiazide 25 mg tablet 25 mg PO DAILY Blood pressure 05/26/18
nitroglycerin 0.4 mg sublingual tablet 0.4 mg sublingual [id number] PRN chest pain 05/26/18
aspirin 81 mg tablet,delayed release 81 mg PO DAILY Blood Clot Prevention/Tx 12/05/22
clopidogrel 75 mg tablet 75 mg PO DAILY Blood Clot Prevention/Tx 12/05/22
fexofenadine 180 mg tablet 180 mg PO DAILY Allergies 08/02/23
alirocumab 150 mg/mL subcutaneous pen injector (Praluent Pen) 150 mg SC Q14D 09/05/24
Home Medication Changes
Pending Results: No
== END 2024-09-13 21:12 | disposition home or self-care (01) | DRG 287 ==
LOC: 4 EAST ACU 04:22
PROVIDERS: Emergency Medicine; Nurse Practitioner Gerontology; Physician Assistant; ADMITTING PHYSICIAN Internal Medicine Cardiovascular Disease; EMERGENCY PHYSICIAN Student in an Organized Health Care Education/Training Program; FAMILY PHYSICIAN Family Medicine; REFERRING PHYSICIAN Internal Medicine Cardiovascular Disease
PROC: B2131ZZ Fluoroscopy of Multiple Coronary Artery Bypass Grafts using Low Osmolar Contrast (ICD-10-PCS; 2024-09-13)
PROC: 4A023N7 Measurement of Cardiac Sampling and Pressure, Left Heart, Percutaneous Approach (ICD-10-PCS; 2024-09-13)
PROC: B2111ZZ Fluoroscopy of Multiple Coronary Arteries using Low Osmolar Contrast (ICD-10-PCS; 2024-09-13)
DX: I25.10 Atherosclerotic heart disease of native coronary artery without angina pectoris (principal); Z95.5 Presence of coronary angioplasty implant and graft; I10 Essential (primary) hypertension; E78.00 Pure hypercholesterolemia, unspecified; J45.909 Unspecified asthma, uncomplicated; E11.9 Type 2 diabetes mellitus without complications; Z79.02 Long term (current) use of antithrombotics/antiplatelets; Z79.82 Long term (current) use of aspirin
CPT/HCPCS: 71046; 80053; 83036; 83735; 84484; 85025; 93005; 93306; 93458; 99285; C1894

== ENCOUNTER → 2024-10-15 11:25 | Outpatient (REF) | payer OTHER, SELFPAY | LOC: HWRAD 11:25 | PROVIDERS: ATTENDING PHYSICIAN Family Medicine | DX: R91.1 Solitary pulmonary nodule (principal) | CPT/HCPCS: 71250 ==

== ENCOUNTER 2025-02-27 08:40 | Day surgery (SDC) | payer OTHER, SELFPAY ==
[2025-02-27] VITALS (10 sets, daily range): BP systolic 127–160; BP diastolic 69–87; BMI 27.8
[2025-02-27 09:19] LABS: Hematocrit 47.8 % (39.0-52.0); Hemoglobin 16.3 g/dL (13.0-18.0); Mean Corp Hgb Conc. 34.1 g/dL (33.0-37.0); Mean Corpuscular Volume 89.8 fL (80.0-94.0); Platelet Count 186 10^3/uL (130-400); Red Cell Dist. Width 12.9 % (11.5-14.5)
[2025-02-27] MEDS: NSS 279 ML IV (09:44)
--- NOTE | 2025-02-27 14:33 | ITS.CL.CATH ---
Nanny/Household Manager - Catheterization
Cardiac Catheterization
Procedure Report:
CARDIAC CATHETERIZATION REPORT
Date of Procedure: 02/27/2025
Referring: JEANMARIE Pike
INDICATION: Known coronary artery disease, chest pain, intolerant of multiple medications.
PROCEDURE:
1. Left heart catheterization
2. Coronary angiography.
A total of 0 minutes of procedural/moderate sedation was utilized. An independent emergency medicine medical director was present to assist with and help manage the patient's level of consciousness and physiologic status.
ACCESS:
1. 6 [place] right radial artery using a modified Seldinger technique.
CATHETERS:
1. 5 [place] JR4.
2. 5 [place] JL 3.5.
HEMODYNAMIC DATA
Weight (kg): 93.0
AO (s/d/x, mmHg): 140/66/96
LV (s/x mmHg): 140/9
AV gradient (x, mmHg): None.
LEFT VENTRICULOGRAPHY: Not performed.
CORONARY ANGIOGRAPHY
Dominance: Right.
Left Main: Normal size, bifurcating vessel. There is no coronary artery disease. The proximal margin of the left circumflex stenosis is observed in the distal vessel.
LAD: Normal size vessel giving rise to 1 significant diagonal. Patent bifurcation stents are observed in the proximal LAD and in the proximal margin of the first diagonal with no evidence of in-stent restenosis. There is a 30% lesion in
the mid diagonal, distal to the stented segment.
Ramus: Congenitally absent.
Circumflex: Large size, nondominant vessel which is essentially a single large obtuse marginal with subsequently divides into several smaller daughter vessels. Patent stents are observed in the distal left main coronary artery extending into
the proximal circumflex and into the obtuse marginal. There is no evidence of in-stent restenosis. There are several tiny obtuse marginal branches that have been jailed by the previously placed stents. There is CHAY II flow. This vessel appears
unchanged from prior cardiac catheterization.
RCA: Large size, dominant vessel with a large posterolateral arcade. There are luminal irregularities in the body of the vessel.
INTERVENTION(S)
None.
Closure Device: Vascular band.
Radiation (mGy): 286.61
DAP (cm2.Gy): 22.6828
Fluoroscopy time (minutes): 1.8
CONCLUSIONS
1. Right dominant circulation with luminal irregularities in the RCA, a patent bifurcation stent in the proximal LAD and first diagonal with a 30% lesion in the mid diagonal distal to the stented segment, patent stents in the distal left main
coronary artery extending into the circumflex with no evidence of in-stent restenosis and stable CHAY II flow in several tiny branching marginals. The entire coronary circulation is unchanged from September 2024.
2. Normal filling pressures (LVEDP = 9 mmHg at 93.0 kg).
RECOMMENDATIONS:
1. Expectant management after cardiac catheterization via right radial approach.
2. Limited weight bearing on the right for one week.
3. Continue dual antiplatelet therapy as previously prescribed.
4. Continue OMT/GDMT as hemodynamics and symptoms will permit.
5. Aggressive secondary prevention with PCSK9 inhibitors. Goal LDL <55.
6. Consider other sources of chest discomfort as the patient may not be experiencing true angina.
Copy to: JEANMARIE Pike, Aaron Terry M.D., Ph.D., Dion Tran M.D.
Bernardo Ballard, DO, FACC, FACP
--- NOTE | 2025-02-27 17:22 | PTCARENOTE ---
during post op cath stay pt did refuse and remove b/p cuff and pulse ox several times throughout his recovery time.
== END 2025-02-27 17:15 | disposition home or self-care (01) ==
LOC: CATH 08:40
PROVIDERS: ATTENDING PHYSICIAN Internal Medicine Cardiovascular Disease; FAMILY PHYSICIAN Family Medicine; OTHER PHYSICIAN Internal Medicine
DX: I25.10 Atherosclerotic heart disease of native coronary artery without angina pectoris (principal); R07.9 Chest pain, unspecified; Z95.5 Presence of coronary angioplasty implant and graft; Z79.02 Long term (current) use of antithrombotics/antiplatelets; Z79.82 Long term (current) use of aspirin; Z79.899 Other long term (current) drug therapy
CPT/HCPCS: 85027; 93458; C1769; C1894; Q9967